=== PATIENT | female | born 1965 | race African-American/Black ===

== ENCOUNTER 2017-08-23 02:47 | Emergency (ER) | payer BC, SELFPAY ==
[2017-08-23] MEDS ORDERED: CYCLOBENZAPRINE 10 MG TAB ONE (03:42)
[2017-08-23] MEDS ORDERED: KETOROLAC 30 MG/ML INJ ONE (03:43)
--- NOTE | 2017-08-23 03:46 | ER ---
Nurse's Notes [facility] Name: Hannah Durand Age: 52 yrs Sex: Female : 1965 Arrival Date: 08/23/2017 Time: 02:48 Bed 7 Private MD: Iam Gamboa E Diagnosis: Otitis externa in other diseases classified elsewhere, left ear;Pain in right shoulder Presentation: 08/23 03:02 Presenting complaint: Patient states: "My left ear feels like popping every 5 min and ao it also painfull." patient also complains of right shoulder pain. Transition of care: patient was not received from another setting of care. Onset of symptoms was August 22, 2017 at 16:00. Risk Assessment: Do you want to hurt yourself or someone else? Patient reports no desire to harm self or others. Initial Sepsis Screen: Does the patient meet any 2 criteria? No. Patient's initial sepsis screen is negative. Does the patient have a suspected source of infection? No. Patient's initial sepsis screen is negative. Care prior to arrival: None. 03:02 Method Of Arrival: Ambulatory ao 03:02 Acuity: JOHN 4 ao Triage Assessment: 03:06 General: Appears in no apparent distress. uncomfortable, Behavior is calm, appropriate ao for age. Pain: Complains of pain in Left ear and right shoulder pain. EENT: Tympanic membrane reddened on left ear. Neuro: Level of Consciousness is awake, Oriented to person, place, time, situation, Appropriate for age Moves all extremities. Speech is normal, Facial symmetry appears normal. Cardiovascular: Capillary refill < 3 seconds Patient's skin is warm and dry. Respiratory: Airway is patent Respiratory effort is even, unlabored, Respiratory pattern is regular, symmetrical. GI: Abdomen is non-distended. : No signs and/or symptoms were reported regarding the genitourinary system. Derm: No signs and/or symptoms reported regarding the dermatologic system. Musculoskeletal: Amputation of Circulation, motion, and sensation intact. Range of motion:. 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 - Social history:: Smoking status: Patient/guardian denies using tobacco, Patient/guardian denies using alcohol, street drugs. - Ebola Screening: : Patient negative for fever greater than or equal to 101.5 degrees Fahrenheit, and additional compatible Ebola Virus Disease symptoms Patient denies exposure to infectious person Patient denies travel to an Ebola-affected area in the 21 days before illness onset. Screenin:06 Abuse screen: Denies threats or abuse. Denies injuries from another. Nutritional ao screening: No deficits noted. Tuberculosis screening: No symptoms or risk factors identified. Fall Risk None identified. Assessment: 03:09 General: See triage notes. ao 03:56 Reassessment: DC Instructions given to patient. Patient agree with the POC and to ao follow up with PCP. Provided with a work note. Patient has no qauestions. Vital Signs: 03:04 BP 145 / 93; Pulse 95; Resp 16; Temp 99.0(O); Pulse Ox 100% on R/A; Weight 72.57 kg ao (R); Height 6 ft. 0 in. (182.88 cm); Pain 8/10; 03:04 Body Mass Index 21.70 (72.57 kg, 182.88 cm) ao ED Course: 02:48 Patient arrived in ED. am2 02:48 Iam Gamboa MD is Private Physician. am2 03:02 Rojelio Grove, RN is Primary Nurse. ao 03:02 Gonzalo Salas PA is PHCP. cp 03:02 Gonzalo Alberto MD is Attending Physician. cp 03:03 Triage completed. ao 03:05 Arm band placed on right wrist. Patient placed in an exam room, on a stretcher, on ao pulse oximetry, Patient notified of wait time. 03:06 Patient has correct armband on for positive identification. Pulse ox on. NIBP on. ao 03:25 X-ray completed. Portable x-ray completed in exam room. Patient tolerated procedure kw well. 03:26 Shoulder Right 2 View In Process Unspecified. EDMS 03:44 Iam Gamboa MD is Referral Physician. cp 03:56 No provider procedures requiring assistance completed. Patient did not have IV access ao during this emergency room visit. Administered Medications: 03:45 Drug: TORadol 60 mg Route: IM; Site: right gluteus; ao 03:58 Follow up: Response: Medication administered at discharge. ao 03:45 Drug: Flexeril 10 mg Route: PO; ao 03:59 Follow up: Response: Medication administered at discharge. ao Outcome: 03:45 Discharge ordered by MD. cp 03:56 Discharged to home ambulatory. ao 03:56 Condition: stable 03:56 Discharge instructions given to patient, Instructed on discharge instructions, follow up and referral plans. Demonstrated understanding of instructions, follow-up care, medications, Prescriptions given X 3. 03:58 Patient left the ED. ao Signatures: Dispatcher [employer] EDMS Lisha Yoon Corey, PA PA cp Ortiz, Alex, RN RN Claudette Matson
--- NOTE | 2017-08-23 03:46 | EDPHYS ---
Physician Documentation [facility] Name: Hannah Durand Age: 52 yrs Sex: Female : 1965 Arrival Date: 08/23/2017 Time: 02:48 Bed 7 Private MD: Iam Gamboa E ED Physician Gonzalo Alberto HPI: 08/23 03:05 This 52 yrs old Black Female presents to ER via Ambulatory with complaints of Ear Pain. cp 03:05 The patient presents with pain, that is acute, tenderness. The complaints affect the cp left ear. Onset: The symptoms/episode began/occurred today. Associated signs and symptoms: Pertinent negatives: cough, fever, sinus trouble, sore throat, vertigo, vomiting. Patient also c/o right shoulder pain times 1 week. Pain worse when lying on shoulder and with movement. Patient denies injury, denies chest pain, denies numbness/tingling. 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 - Social history:: Smoking status: Patient/guardian denies using tobacco, Patient/guardian denies using alcohol, street drugs. - Ebola Screening: : Patient negative for fever greater than or equal to 101.5 degrees Fahrenheit, and additional compatible Ebola Virus Disease symptoms Patient denies exposure to infectious person Patient denies travel to an Ebola-affected area in the 21 days before illness onset. ROS: 03:10 Constitutional: Negative for body aches, chills, fever, poor PO intake. cp 03:10 Eyes: Negative for injury, pain, redness, and discharge. cp 03:10 ENT: Positive for ear pain, Negative for drainage from ear(s), rhinorrhea, sinus congestion, sore throat, difficulty swallowing, difficulty handling secretions. 03:10 Neck: Negative for pain with movement, pain at rest, stiffness, swollen nodes, tenderness, bony tenderness. 03:10 Cardiovascular: Negative for chest pain, edema, palpitations. 03:10 Respiratory: Negative for cough, shortness of breath, wheezing. 03:10 Abdomen/GI: Negative for abdominal pain, nausea, vomiting, and diarrhea, black/tarry stool, rectal bleeding. 03:10 Back: Negative for injury or acute deformity, radiated pain. 03:10 MS/extremity: Positive for pain, tenderness, of the right shoulder, Negative for injury or acute deformity, decreased range of motion, paresthesias. 03:10 Skin: Negative for cellulitis, diaphoresis, rash. 03:10 Neuro: Negative for altered mental status, dizziness, headache, numbness, tingling, weakness. 03:10 All other systems are negative. Exam: 03:12 Constitutional: The patient appears in no acute distress, alert, awake, cp non-diaphoretic, non-toxic, well developed. 03:12 Head/Face: Normocephalic, atraumatic. cp 03:12 Eyes: Periorbital structures: appear normal, Pupils: equal, round, and reactive to light and accomodation, Extraocular movements: intact throughout, Conjunctiva: normal, no exudate, no injection, Sclera: no appreciated abnormality, Lids and lashes: appear normal, bilaterally. 03:12 ENT: External ear(s): pain with movement, that is mild, of the left ear canal, swelling, that is minimal, of the left ear canal, Ear canal(s): erythema, is not appreciated, bilaterally, purulent discharge, is not appreciated, bilaterally, TM's: dullness, bilaterally, Nose: is normal, Mouth: is normal, no lip abnormalities, no mucosal abnormalities, Posterior pharynx: is normal, airway is patent, no erythema, no exudate, Voice: is normal. 03:12 Neck: C-spine: vertebral tenderness, is not appreciated, crepitus, is not appreciated, ROM/movement: is normal, is supple, without pain, no range of motions limitations, no nuchal rigidity, Lymph nodes: no appreciated lymphadenopathy. 03:12 Chest/axilla: Inspection: normal, Palpation: is normal, no crepitus, no tenderness. 03:12 Cardiovascular: Rate: normal, Rhythm: regular, Heart sounds: murmur, not appreciated, rub, not appreciated, gallop, not appreciated, Edema: is not appreciated, JVD: is not appreciated. 03:12 Respiratory: the patient does not display signs of respiratory distress, Respirations: normal, no use of accessory muscles, no retractions, no splinting, no tachypnea, labored breathing, is not present, Breath sounds: are clear throughout, no decreased breath sounds, no stridor, no wheezing. 03:12 Abdomen/GI: Exam negative for discomfort, distension, guarding, Inspection: abdomen appears normal. 03:12 Back: pain, is absent, ROM is normal. 03:12 Musculoskeletal/extremity: Perfusion: the extremity is normally perfused throughout, Sensation intact. Joints: All joints are normal except the right shoulder displays painful range of motion, tenderness. 03:12 Skin: cellulitis, is not appreciated, no rash present. 03:12 Neuro: Orientation: to person, place \T\ time. Mentation: lucid, able to follow commands. Vital Signs: 03:04 BP 145 / 93; Pulse 95; Resp 16; Temp 99.0(O); Pulse Ox 100% on R/A; Weight 72.57 kg ao (R); Height 6 ft. 0 in. (182.88 cm); Pain 8/10; 03:04 Body Mass Index 21.70 (72.57 kg, 182.88 cm) ao MDM: 03:02 Patient medically screened. cp 03:25 Differential diagnosis: otitis media, otitis externa, ruptured TM, foreign body, acute cp otalgia, cerumen impaction, tendonitis, shoulder strain. 03:45 Data reviewed: vital signs, nurses notes, radiologic studies, plain films, and as a cp result, I will discharge patient. 03:45 Test interpretation: by ED physician or midlevel provider: plain radiologic studies. cp Counseling: I had a detailed discussion with the patient and/or guardian regarding: the historical points, exam findings, and any diagnostic results supporting the discharge/admit diagnosis, radiology results, the need for outpatient follow up, a family practitioner, to return to the emergency department if symptoms worsen or persist or if there are any questions or concerns that arise at home. Response to treatment: the patient's symptoms have markedly improved after treatment, and as a result, I will discharge patient. 08/23 03:49 Order name: Urine Dipstick--Ancillary (enter results) [facility] 08/23 03:49 Order name: Urine --Ancillary (enter results) [facility] 08/23 03:26 Order name: Shoulder Right 2 View [facility] 08/23 03:17 Order name: Urine Test (obtain specimen); Complete Time: 03:45 cp Administered Medications: 03:45 Drug: TORadol 60 mg Route: IM; Site: right gluteus; ao 03:58 Follow up: Response: Medication administered at discharge. ao 03:45 Drug: Flexeril 10 mg Route: PO; ao 03:59 Follow up: Response: Medication administered at discharge. ao Disposition: 08/23/17 03:45 Discharged to Home. Impression: Otitis externa in other diseases classified elsewhere, left ear, Pain in right shoulder. - Condition is Stable. - Discharge Instructions: Otitis Externa, Shoulder Pain. - Prescriptions for Cortisporin- TC 3.3-3-10-0.5 mg/mL Otic Drops, Suspension - instill 4 drops by OTIC route every 6 hours for 7 days instill drops in left ear; 1 bottle. Cyclobenzaprine 10 mg Oral Tablet - take 1 tablet by ORAL route every 8 hours As needed no driving while taking medication; 20 tablet. Diclofenac Sodium 75 mg Oral Tablet, Delayed Release (E.C.) - take 1 tablet by ORAL route 2 times per day; 20 tablet. - Medication Reconciliation Form, Thank You Letter, Antibiotic Education, Prescription Opioid Use, Work release form form. - Follow up: Iam Gamboa MD; When: 2 - 3 days; Reason: Recheck today's complaints. - Problem is new. - Symptoms have improved. Addendum: 08/24/2017 06:01 Co-signature as Attending Physician, Gonzalo Alberto MD I agree with the assessment and c corbett plan of care. Signatures: Dispatcher [employer] [facility] Gonzalo Alberto MD MD cha Page, Corey, PA PA cp Ortiz, Alex RN RN ao Corrections: (The following items were deleted from the chart) 08/23 03:26 03:17 Shoulder Left 2 View+RAD.RAD.BRZ ordered. [facility] 03:58 03:45 08/23/2017 03:45 Discharged to Home. Impression: Otitis externa in other diseases ao classified elsewhere, left ear; Pain in right shoulder. Condition is Stable. Forms are Medication Reconciliation Form, Thank You Letter, Antibiotic Education, Prescription Opioid Use. Follow up: Iam Gamboa; When: 2 - 3 days; Reason: Recheck today's complaints. Problem is new. Symptoms have improved. cp
[2017-08-23 04:09] VITALS: BP 145/93; TEMP 99; O2SAT 100
[2017-08-23] MEDS ORDERED: IBUPROFEN 200 MG TAB PO ONE (04:41)
[2017-08-23] MEDS ORDERED: HYDROCODONE/APAP 7.5/325 MG TAB ONE (04:41)
[2017-08-23] MEDS ORDERED: IBUPROFEN 400 MG TAB ONE (04:41)
[2017-08-23] MEDS ORDERED: DIAZEPAM 5 MG TABLET ONE (04:41)
[2017-08-23 06:11] LABS: Urine Blood NEGATIVE (NEG); Urine Glucose NEGATIVE (NEG); Urine Protein NEGATIVE (NEG); Urine Specific Gravity 1.015 (1.005-1.030); Urine pH 5.5 (5.0-7.0)
--- NOTE | 2017-08-23 10:06 | RAD REPORT ---
EXAM DESCRIPTION: RAD - Shoulder Right 2 View - 08/23/2017 3:28 am CLINICAL HISTORY: PAIN COMPARISON: Chest Single View dated 11/20/2016 FINDINGS: No fracture or dislocation is seen. No bone or joint abnormality detected.
== END 2017-08-23 03:58 | disposition home or self-care (01) ==
LOC: ER 02:47
DX: H60.8X2 Other otitis externa, left ear (principal); M25.511 Pain in right shoulder; I10 Essential (primary) hypertension
CPT/HCPCS: 81003; 81025; 96372; 99284

== ENCOUNTER 2017-09-11 13:21 | Emergency (ER) | payer BC, SELFPAY ==
[2017-09-11] MEDS ORDERED: NA CHLORIDE 0.9% 1,000 ML ONE (14:09)
[2017-09-11] MEDS ORDERED: MORPHINE 4 MG/ML SYR ONE (14:09)
[2017-09-11] MEDS ORDERED: ONDANSETRON 4 MG/2 ML VIAL ONE (14:09)
[2017-09-11 14:12] LABS: Absolute Lymphocytes (CBC) 1.3 K/uL (0.7-4.9); Absolute Monocytes 0.3 K/uL (0.1-1.3); Absolute Neutrophil 1.4 K/uL (1.8-8.0); Basophils % 0.7 % (0-1.3); Eosinophils % 0.5 % (0-4.4); Hematocrit 40.6 % (36.0-45.0); Lymphocytes % 41.7 % (15.3-44.8); MCV 92.5 fL (80-100); MPV 7.8 fL (7.6-11.3); Monocytes % 9.4 % (3.3-12.3); RBC Red Blood Cell Count 4.39 M/uL (3.86-4.86)
[2017-09-11 14:30] LABS: Albumin 3.9 g/dL (3.4-5.0); Bilirubin Direct 0.2 mg/dL (0-0.2); Bilirubin Total 0.9 mg/dL (0.2-1.0); Potassium 3.9 mmol/L (3.5-5.1); Protein, Total 8.8 g/dL (6.4-8.2)
--- NOTE | 2017-09-11 16:15 | RAD REPORT ---
EXAM DESCRIPTION: CT - Abdomen Pelvis W Contrast - 09/11/2017 4:04 pm CLINICAL HISTORY: Abdominal pain. Diarrhea since Sunday COMPARISON: 2015 TECHNIQUE: Computed axial tomography of the abdomen and pelvis was obtained. 100 cc Isovue-300 is ad ministered intravenously. Oral contrast was given. All CT scans are performed using dose optimization technique as appropriate and may include automated exposure control or mA/KV adjustment according to patient size. FINDINGS: The liver, spleen,, adrenals and kidneys appear unremarkable. Fatty infiltration of a portion of the pancreas is unchanged. The appendix is normal caliber. There is no evidence of diverticulitis . Medial wall of the transvers e and right colon appears mildly thickened Postsurgical changes of a ventral hernia repair are seen. IMPRESSION: Mild colitis
[2017-09-11 16:31] LABS: Urine Blood NEGATIVE (NEG); Urine Glucose NEGATIVE (NEG); Urine Protein NEGATIVE (NEG); Urine Specific Gravity 1.015 (1.005-1.030)
[2017-09-11 16:34] LABS: Urine Bacteria <20 /HPF (<20); Urine Culture Reflex Order NOT NEEDED; Urine RBC <5 /HPF (NONE SEEN)
--- NOTE | 2017-09-11 16:38 | EDPHYS ---
Physician Documentation [facility] Name: Hannah Durand Age: 52 yrs Sex: Female : 1965 Arrival Date: 09/11/2017 Time: 13:25 Bed 28 Private MD: Iam Gamboa E ED Physician Guy Oscar HPI: 09/11 13:46 This 52 yrs old Black Female presents to ER via Ambulatory with complaints of Abdominal jmm Pain, Headache. 13:46 The patient presents with abdominal pain that is diffuse. Onset: The symptoms/episode jmm began/occurred gradually, 4 day(s) ago. Associated signs and symptoms: Pertinent positives: diarrhea. Associated signs and symptoms: Pertinent negatives: fever, vomiting. The symptoms are described as achy. This is a 52 year old female with a history of hypertension that presents to the ED with diarrhea and generalized abdominal pain. Denies vomiting but admits to nausea. Patient denies recent abx use, denies recent travel, denies sick contact. . 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 - Social history:: Smoking status: Patient uses tobacco products, Patient/guardian denies using alcohol. - Ebola Screening: : Patient negative for fever greater than or equal to 101.5 degrees Fahrenheit, and additional compatible Ebola Virus Disease symptoms Patient denies exposure to infectious person Patient denies travel to an Ebola-affected area in the 21 days before illness onset. ROS: 13:46 Constitutional: Negative for fever, chills, and weight loss. jmm 13:46 Cardiovascular: Negative for chest pain. 13:46 Abdomen/GI: Positive for abdominal pain, nausea, diarrhea. 13:46 Back: Negative for pain at rest. 13:46 Neuro: Positive for headache, Negative for weakness. 13:46 All other systems are negative. Exam: 13:46 Head/Face: atraumatic. Chest/axilla: Normal chest wall appearance and motion. jmm Cardiovascular: Regular rate and rhythm. No edema appreciated Respiratory: Normal respirations, no respiratory distress appreciated 13:46 Constitutional: The patient appears in no acute distress, alert, awake. 13:46 Abdomen/GI: Inspection: obese Bowel sounds: normal, Palpation: soft, mild abdominal tenderness, in all quadrants. 13:46 Back: ROM is normal. 13:46 Musculoskeletal/extremity: ROM: intact in all extremities. 13:46 Skin: Appearance: Color: normal in color. 13:46 Neuro: Orientation: is normal, Mentation: is normal, Memory: is normal, Gait: is steady. 13:46 Psych: Behavior/mood is pleasant, cooperative. Vital Signs: 13:31 BP 159 / 104; Pulse 89; Resp 18; Temp 98.1; Pulse Ox 100% on R/A; Weight 72.57 kg; hj Height 6 ft. 0 in. (182.88 cm); Pain 10/10; 14:30 BP 143 / 98; Pulse 90; Resp 17; Pulse Ox 99% on R/A; kr2 15:30 BP 152 / 100; Pulse 88; Resp 20; Pulse Ox 99% on R/A; kr2 16:30 BP 144 / 88; Pulse 92; Resp 17; Pulse Ox 99% on R/A; kr2 13:31 Body Mass Index 21.70 (72.57 kg, 182.88 cm) hj MDM: 13:36 Patient medically screened. [facility] 16:34 Data reviewed: vital signs, nurses notes, lab test result(s), radiologic studies, CT [facility] scan. Counseling: I had a detailed discussion with the patient and/or guardian regarding: the historical points, exam findings, and any diagnostic results supporting the discharge/admit diagnosis, lab results, radiology results, the need for outpatient follow up, to return to the emergency department if symptoms worsen or persist or if there are any questions or concerns that arise at home. ED course: Patient's pain is relieved in the ED. Patient is able to tolerate PO by mouth. Patient will be prescribed oral antibiotics and is advised to follow up with GI for further evaluation. Patient advised to return to the ED if she develops worsening pain, fever, unable to tolerate fluids by mouth or if she has any other concerning symptoms. The patient and family understood and agree with the plan of care. . 09/11 13:44 Order name: Amylase, Serum; Complete Time: 14:37 [facility] 09/11 13:44 Order name: Basic Metabolic Panel; Complete Time: 14:37 [facility] 09/11 13:44 Order name: CBC with Diff; Complete Time: 14:27 [facility] 09/11 13:44 Order name: Creatinine for Radiology; Complete Time: 14:37 [facility] 09/11 13:44 Order name: Hepatic Function; Complete Time: 14:37 [facility] 09/11 13:44 Order name: Lipase; Complete Time: 14:37 [facility] 09/11 13:44 Order name: Urine Microscopic Only; Complete Time: 16:40 [facility] 09/11 13:44 Order name: CT Abd/Pelvis - W/Contrast; Complete Time: 16:19 [facility] 09/11 16:27 Order name: Urine Dipstick--Ancillary (enter results); Complete Time: 16:40 ag 09/11 16:27 Order name: Urine --Ancillary (enter results); Complete Time: 16:40 ag 09/11 13:44 Order name: IV Saline Lock; Complete Time: 14:34 [facility] 09/11 13:44 Order name: Labs collected and sent; Complete Time: 14:34 [facility] 09/11 13:44 Order name: Urine Dipstick-Ancillary (obtain specimen); Complete Time: 16:31 jm Administered Medications: 14:05 Drug: morphine 4 mg Route: IVP; Site: left antecubital; kr2 14:30 Follow up: Response: No adverse reaction; Pain is decreased kr2 14:10 Drug: NS 0.9% 1000 ml Route: IV; Rate: 1 bolus; Site: left antecubital; kr2 15:30 Follow up: Response: No adverse reaction; IV Status: Completed infusion kr2 14:10 Drug: Zofran 4 mg Route: IVP; Site: left antecubital; kr2 14:30 Follow up: Response: No adverse reaction kr2 Disposition: 20:54 Co-signature as Attending Physician, Guy Oscar MD. Disposition: 09/11/17 16:37 Discharged to Home. Impression: COLITIS, Diarrhea. - Condition is Stable. - Discharge Instructions: Diarrhea. - Prescriptions for Bentyl 20 mg Oral Tablet - take 2 tablet by ORAL route every 6 hours As needed; 40 tablet. Cipro 500 mg Oral Tablet - take 1 tablet by ORAL route every 12 hours for 10 days; 20 tablet. Flagyl 500 mg Oral Tablet - take 1 tablet by ORAL route every 6 hours for 10 days; 40 tablet. Tylenol- Codeine #3 300-30 mg Oral Tablet - take 1 tablet by ORAL route every 6 hours As needed; 12 tablet. Zofran 4 mg Oral Tablet - take 1 tablet by ORAL route every 12 hours As needed; 20 tablet. - Medication Reconciliation Form, Thank You Letter, Antibiotic Education, Prescription Opioid Use form. - Follow up: Serge Johnson MD; When: 2 - 3 days; Reason: Continuance of care. Signatures: Dispatcher [employer] EDMS Gonzalo Alberto MD MD cha Mickail, Joel, PA PA jmm Joaquin, Henry, RN RN Guy Oscar MD MD gs Reaves, Karey, RN RN kr2 Corrections: (The following items were deleted from the chart) 13:31 13:29 PSHx: None; [facility] 16:49 16:37 09/11/2017 16:37 Discharged to Home. Impression: COLITIS; Diarrhea. Condition is kr2 Stable. Forms are Medication Reconciliation Form, Thank You Letter, Antibiotic Education, Prescription Opioid Use. Follow up: Serge Johnson; When: 2 - 3 days; Reason: Continuance of care. nilesh
--- NOTE | 2017-09-11 16:38 | ER ---
Nurse's Notes [facility] Name: Hannah Durand Age: 52 yrs Sex: Female : 1965 Arrival Date: 09/11/2017 Time: 13:25 Bed 28 Private MD: Iam Gamboa E Diagnosis: COLITIS;Diarrhea Presentation: 09/11 13:27 Presenting complaint: Patient states: my stomach hurts since Sunday and woke today hj with headache, reports diarrhea since Sunday; reports nausea; denies fever and chills;. Transition of care: patient was not received from another setting of care. Onset of symptoms was September 11, 2017. Risk Assessment: Do you want to hurt yourself or someone else? Patient reports no desire to harm self or others. Initial Sepsis Screen: Does the patient meet any 2 criteria? No. Patient's initial sepsis screen is negative. Does the patient have a suspected source of infection? No. Patient's initial sepsis screen is negative. Care prior to arrival: None. 13:27 Method Of Arrival: Ambulatory 13:27 Acuity: JOHN 3 Triage Assessment: 13:29 General: Appears in no apparent distress. uncomfortable, Behavior is calm, cooperative, hj appropriate for age. Pain: Complains of pain in abdomen. GI: Reports lower abdominal pain, upper abdominal pain, diarrhea, nausea. 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 - Social history:: Smoking status: Patient uses tobacco products, Patient/guardian denies using alcohol. - Ebola Screening: : Patient negative for fever greater than or equal to 101.5 degrees Fahrenheit, and additional compatible Ebola Virus Disease symptoms Patient denies exposure to infectious person Patient denies travel to an Ebola-affected area in the 21 days before illness onset. Screenin:29 Abuse screen: Denies threats or abuse. Denies injuries from another. Nutritional hj screening: No deficits noted. Tuberculosis screening: No symptoms or risk factors identified. Fall Risk None identified. Assessment: 13:30 GI: Bowel sounds present X 4 quads. Abd is soft Abdomen is tender to palpation. hj 13:45 General: Appears in no apparent distress. comfortable, well groomed, well developed, kr2 well nourished, Behavior is calm, cooperative, appropriate for age. Pain: Complains of pain in abdomen Pain does not radiate. Pain currently is 9 out of 10 on a pain scale. Quality of pain is described as crampy, shooting, Is continuous, Alleviated by rest, Aggravated by increased activity. Neuro: Level of Consciousness is awake, alert, obeys commands, Oriented to person, place, time, situation, Appropriate for age. Cardiovascular: Capillary refill < 3 seconds in bilateral fingers Patient's skin is warm and dry. Respiratory: Airway is patent Respiratory effort is even, unlabored, Respiratory pattern is regular, symmetrical. GI: Bowel sounds present X 4 quads. Abd is soft X 4 quads Abdomen is tender to palpation X 4 quads. : Denies burning with urination. EENT: Oral mucosa is moist. Derm: Skin is intact, is healthy with good turgor, Skin is pink, warm \T\ dry. Musculoskeletal: Circulation, motion, and sensation intact. 14:30 Reassessment: Oral contrast completed, CT department notified. kr2 15:30 Reassessment: Patient appears in no apparent distress at this time. Patient and/or kr2 family updated on plan of care and expected duration. Pain level reassessed. Patient is alert, oriented x 3, equal unlabored respirations, skin warm/dry/pink. Patient states feeling better. 16:30 Reassessment: No changes from previously documented assessment. kr2 Vital Signs: 13:31 BP 159 / 104; Pulse 89; Resp 18; Temp 98.1; Pulse Ox 100% on R/A; Weight 72.57 kg; Height 6 ft. 0 in. (182.88 cm); Pain 10/10; 14:30 BP 143 / 98; Pulse 90; Resp 17; Pulse Ox 99% on R/A; kr2 15:30 BP 152 / 100; Pulse 88; Resp 20; Pulse Ox 99% on R/A; kr2 16:30 BP 144 / 88; Pulse 92; Resp 17; Pulse Ox 99% on R/A; kr2 13:31 Body Mass Index 21.70 (72.57 kg, 182.88 cm) ED Course: 13:25 Patient arrived in ED. sb2 13:25 Iam Gamboa MD is Private Physician. sb2 13:28 Triage completed. hj 13:30 Arm band placed on left wrist. hj 13:30 Patient has correct armband on for positive identification. Placed in gown. Bed in low hj position. Call light in reach. Side rails up X 1. 13:33 Antonio Colon PA is PHCP. [facility] 13:34 Guy Oscar MD is Attending Physician. [facility] 13:34 Angela Barton, CYNTHIA is Primary Nurse. kr2 14:00 Inserted saline lock: 20 gauge in left antecubital area, using aseptic technique. Blood kr2 collected. 15:[address] via wheelchair. nj 16:04 CT completed. Patient tolerated procedure well. Patient moved back from CT. nj 16:04 CT Abd/Pelvis - W/Contrast In Process Unspecified. EDMS 16:36 Serge Johnson MD is Referral Physician. [facility] 16:48 No provider procedures requiring assistance completed. IV discontinued. kr2 Administered Medications: 14:05 Drug: morphine 4 mg Route: IVP; Site: left antecubital; kr2 14:30 Follow up: Response: No adverse reaction; Pain is decreased kr2 14:10 Drug: NS 0.9% 1000 ml Route: IV; Rate: 1 bolus; Site: left antecubital; kr2 15:30 Follow up: Response: No adverse reaction; IV Status: Completed infusion kr2 14:10 Drug: Zofran 4 mg Route: IVP; Site: left antecubital; kr2 14:30 Follow up: Response: No adverse reaction kr2 Outcome: 16:37 Discharge ordered by . [facility] 16:48 Discharged to home ambulatory, with family. kr2 16:48 Condition: good 16:48 Discharge instructions given to patient, family, Instructed on discharge instructions, follow up and referral plans. medication usage, Demonstrated understanding of instructions, follow-up care, medications, Prescriptions given X 5 16:49 Patient left the ED. kr2 Signatures: Dispatcher [employer] EDMS Antonio Colon PA PA Jose Wesley RN RN hj Jordan, Nathan nj Reaves, Karey, CYNTHIA RN kr2 Debbi Flannery sb2 Corrections: (The following items were deleted from the chart) 13:31 13:29 PSHx: None; hj hj
[2017-09-11 16:53] VITALS: TEMP 98.1
[2017-09-11 16:54] VITALS: O2SAT 99
[2017-09-11 16:56] VITALS: BP 144/88
== END 2017-09-11 16:49 | disposition home or self-care (01) ==
LOC: ER 13:21
DX: K52.9 Noninfective gastroenteritis and colitis, unspecified (principal); I10 Essential (primary) hypertension; Z72.0 Tobacco use
CPT/HCPCS: 36415; 74177; 80048; 80076; 81003; 81015; 81025; 82150; 83690; 85025; 96361; 96374; 96375; 99284; J2405; J7030; Q9967

== ENCOUNTER 2017-10-12 04:42 | Emergency (ER) | payer SELFPAY ==
[2017-10-12] MEDS ORDERED: IPRATROPIUM BROM 0.5MG/2.5ML ONE (05:01)
[2017-10-12] MEDS ORDERED: ALBUTEROL 2.5 MG/3 ML NEB SOL ONE (05:01)
[2017-10-12] MEDS ORDERED: NA CHLORIDE 0.9% 500 ML ONE (05:12)
[2017-10-12 05:21] LABS: Urine Blood NEGATIVE (NEG); Urine Glucose NEGATIVE (NEG); Urine Protein NEGATIVE (NEG); Urine pH 6.5 (5.0-7.0)
[2017-10-12 05:22] LABS: Arterial Blood Carboxyhemoglob 1.7 % (0-1.5); Blood Gas Oxyhemoglobin 96.3 % (94-97); Blood O2 Saturation 99.4 % (92-98.5)
[2017-10-12 05:32] LABS: Absolute Lymphocytes (CBC) 1.6 K/uL (0.7-4.9); Absolute Monocytes 0.3 K/uL (0.1-1.3); Absolute Neutrophil 2.5 K/uL (1.8-8.0); Basophils % 0.3 % (0-1.3); Eosinophils % 1.1 % (0-4.4); Hematocrit 37.4 % (36.0-45.0); Lymphocytes % 35.5 % (15.3-44.8); MCV 93.6 fL (80-100); Monocytes % 7.7 % (3.3-12.3); RBC Red Blood Cell Count 3.99 M/uL (3.86-4.86)
[2017-10-12 05:55] LABS: ALT/SGPT 28 U/L (12-78); AST/SGOT 29 U/L (15-37); Albumin 3.8 g/dL (3.4-5.0); Alkaline Phosphatase 66 U/L (45-117); BUN Blood Urea Nitrogen 15 mg/dL (7-18); Bicarbonate 29 mmol/L (21-32); Bilirubin Direct 0.2 mg/dL (0-0.2); Bilirubin Total 0.6 mg/dL (0.2-1.0); CKMB Creatine Kinase MB < 1.0 ng/mL (0.3-3.6); Creatine Phosphokinase 71 U/L (26-192); Glucose Level 118 mg/dL (74-106); Magnesium 2.3 mg/dL (1.8-2.4); NT PRO-BNP 111 pg/mL (<125); Potassium 3.3 mmol/L (3.5-5.1); Protein, Total 8.8 g/dL (6.4-8.2); Sodium Level 143 mmol/L (136-145)
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
[2017-10-12] MEDS ORDERED: POTASSIUM 25 MEQ EFFERV TAB ONE (06:16)
[2017-10-12 06:59] VITALS: BP 136/80; TEMP 98.5; O2SAT 97
--- NOTE | 2017-10-12 07:46 | RAD REPORT ---
EXAM DESCRIPTION: Jose Juan Single View10/12/2017 5:19 am CLINICAL HISTORY: Cough COMPARISON: November 2016 FINDINGS: The left base is mildly hazy. The remainder of the lungs appear clear of acute infiltrate . . The heart is mildly enlarged. IMPRESSION: The left base is mildly hazy. This may be secondary to overlying soft tissue or a mild i nfiltrate. If clinically indicated further evaluation with PA and lateral chest series could be obtai fl[place]
--- NOTE | 2017-10-12 11:40 | EKG ---
Test Date: 2017-10-12 Test Time: 05:01:47 Operator Supply: TIMMY MEASUREMENT RESULTS: Intervals: Rate: 82 MS: 140 QRSD: 86 QT: 362 QTc: 422 [place]: P: 55 MS: 140 QRS: 14 T: 37 INTERPRETIVE STATEMENTS: Normal sinus rhythm Nonspecific T wave abnormality Abnormal ECG Compared to ECG 11/20/2016 14:51:30 No significant changes Electronically Signed On 10-12-17 11:40:13 CDT by Joe Cruz
== END 2017-10-12 06:35 | disposition home or self-care (01) ==
LOC: ER 04:42
DX: J70.5 Respiratory conditions due to smoke inhalation (principal); I10 Essential (primary) hypertension; E87.6 Hypokalemia
CPT/HCPCS: 36415; 71045; 80048; 80076; 81003; 82550; 82553; 82805; 83735; 83880; 84484; 85025; 93005; 94640; 96360; 99285

== ENCOUNTER 2018-02-09 23:34 | Emergency (ER) | payer SELFPAY ==
[2018-02-10] MEDS ORDERED: HYDROCODONE/APAP 10/325 TAB ONE (00:39)
[2018-02-10] MEDS ORDERED: DIAZEPAM 5 MG TABLET ONE (00:40)
--- NOTE | 2018-02-10 02:03 | EDPHYS ---
Physician Documentation [facility] Name: Hannah Durand Age: 52 yrs Sex: Female : 1965 Arrival Date: 02/09/2018 Time: 23:36 Bed 18 Private MD: ED Physician Jt Yeboah HPI: 02/10 00:10 This 52 yrs old Black Female presents to ER via Ambulatory with complaints of Back Pain.jmm 00:10 The patient presents with pain that is acute. The symptoms are located in the low back, jmm coccyx area. Onset: The symptoms/episode began/occurred acutely, just prior to arrival. The pain does not radiate. Associated signs and symptoms: Pertinent negatives: fever, incontinence, numbness, urinary retention, weakness. This is a 52 year old female with a history of HTN that presents to the ED with lower back pain after slipping yesterday, hitting the floor. Pain is localized to the left buttock and tailbone. . 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 - Social history:: Smoking status: Patient/guardian denies using tobacco, Patient/guardian denies using alcohol. - Ebola Screening: : Patient negative for fever greater than or equal to 101.5 degrees Fahrenheit, and additional compatible Ebola Virus Disease symptoms Patient denies exposure to infectious person Patient denies travel to an Ebola-affected area in the 21 days before illness onset. ROS: 02/10 00:10 Constitutional: Negative for fever, chills, and weight loss. jmm Back: Positive for pain at rest, pain with movement. All other systems are negative. Exam: 00:10 Head/Face: atraumatic. Eyes: EOMI, no conjunctival erythema appreciated ENT: Moist jmm Mucus Membranes Neck: Trachea midline, Supple Chest/axilla: Normal chest wall appearance and motion. Cardiovascular: Regular rate and rhythm. No edema appreciated Respiratory: Normal respirations, no respiratory distress appreciated Abdomen/GI: Non distended, soft 00:10 Constitutional: The patient appears in no acute distress, alert, awake. 00:10 Back: ROM is painful, pain localized to the left paraspinal lumbar region, coccyx, and left buttock. 00:10 Musculoskeletal/extremity: ROM: intact in all extremities. 00:10 Skin: Appearance: Color: normal in color. 00:10 Neuro: Motor: is normal. 00:10 Psych: Behavior/mood is pleasant, cooperative. Vital Signs: 02/09 23:50 BP 168 / 103; Pulse 76; Resp 18; Temp 98.5(O); Pulse Ox 99% on R/A; Weight 85.73 kg fc (R); Height 6 ft. 0 in. (182.88 cm) (R); Pain 12/19; 02/10 02:16 BP 137 / 80; Pulse 78; Resp 18; Pulse Ox 98% on R/A; lp1 02/09 23:50 Body Mass Index 25.63 (85.73 kg, 182.88 cm) fc MDM: 00:10 Patient medically screened. [facility] 02:02 Data reviewed: vital signs, nurses notes. Counseling: I had a detailed discussion with nilesh the patient and/or guardian regarding: the historical points, exam findings, and any diagnostic results supporting the discharge/admit diagnosis, radiology results, the need for outpatient follow up, to return to the emergency department if symptoms worsen or persist or if there are any questions or concerns that arise at home. 02/10 00:10 Order name: Sacrum And Coccyx XRAY [facility] 02/10 00:10 Order name: Lumbar Spine (3 Views) XRAY [facility] Administered Medications: 00:34 Drug: [place] 10 mg-325 mg 1 tabs Route: PO; lp1 01:40 Follow up: Response: Pain is unchanged, physician notified lp1 00:34 Drug: Valium 5 mg Route: PO; lp1 01:40 Follow up: Response: Pain is unchanged, physician notified lp1 02:16 Drug: Ketorolac 30 mg Route: IM; Site: left deltoid; lp1 02:16 Follow up: Response: Medication administered at discharge. lp1 Disposition: 05:33 Co-signature as Attending Physician, Jt Yeboah MD. rn Disposition: 02/10/18 02:03 Discharged to Home. Impression: Low back pain. - Condition is Stable. - Discharge Instructions: Tailbone Injury. - Prescriptions for Ultracet 37.5- 325 mg Oral Tablet - take 1 tablet by ORAL route every 6 hours - for up to 5 days; do not exceed 8 tablets per day.; 12 tablet. - Medication Reconciliation Form, Thank You Letter, Antibiotic Education, Prescription Opioid Use form. - Follow up: Private Physician; When: 2 - 3 days; Reason: Recheck today's complaints, Continuance of care, Re-evaluation by your physician. Signatures: Dispatcher [employer] EDMS Antonio Colon PA PA jmm Chretien, Felicia, RN RN fc Jt Yeboah MD MD rn Carey Velasquez RN RN lp1 Corrections: (The following items were deleted from the chart) 02:17 02:03 02/10/2018 02:03 Discharged to Home. Impression: Low back pain. Condition is lp1 Stable. Forms are Medication Reconciliation Form, Thank You Letter, Antibiotic Education, Prescription Opioid Use. Follow up: Private Physician; When: 2 - 3 days; Reason: Recheck today's complaints, Continuance of care, Re-evaluation by your physician. nilesh
--- NOTE | 2018-02-10 02:03 | ER ---
Nurse's Notes [facility] Name: Hannah Durand Age: 52 yrs Sex: Female : 1965 Arrival Date: 02/09/2018 Time: 23:36 Bed 18 Private MD: Diagnosis: Low back pain Presentation: 02/09 23:47 Presenting complaint: Patient states: that she slipped on some grease at work and fell fc straight on her back. Now having lower back pain. Denies any LOC. Transition of care: patient was not received from another setting of care. Onset of symptoms was February 08, 2018. Risk Assessment: Do you want to hurt yourself or someone else? Patient reports no desire to harm self or others. Initial Sepsis Screen: Does the patient meet any 2 criteria? No. Patient's initial sepsis screen is negative. Does the patient have a suspected source of infection? No. Patient's initial sepsis screen is negative. Care prior to arrival: Medication(s) given: Motrin, 800 mg, last at 1700. 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 - Social history:: Smoking status: Patient/guardian denies using tobacco, Patient/guardian denies using alcohol. - Ebola Screening: : Patient negative for fever greater than or equal to 101.5 degrees Fahrenheit, and additional compatible Ebola Virus Disease symptoms Patient denies exposure to infectious person Patient denies travel to an Ebola-affected area in the 21 days before illness onset. Screenin/02 01:52 Abuse screen: Denies threats or abuse. Denies injuries from another. Nutritional lp1 screening: No deficits noted. Tuberculosis screening: Fall Risk None identified. Assessment: 00:15 General: Appears uncomfortable, Behavior is appropriate for age. Pain: Complains of lp1 pain in lumbar area and sacrum Pain currently is 8 out of 10 on a pain scale. Neuro: Level of Consciousness is awake, alert, obeys commands. Cardiovascular: Patient's skin is warm and dry. Respiratory: No deficits noted. GI: No deficits noted. : No deficits noted. EENT: No deficits noted. Derm: No deficits noted. Musculoskeletal: Circulation, motion, and sensation intact. 01:40 Reassessment: Patient states no pain relief, Provider notified. lp1 Vital Signs: 02/09 23:50 BP 168 / 103; Pulse 76; Resp 18; Temp 98.5(O); Pulse Ox 99% on R/A; Weight 85.73 kg fc (R); Height 6 ft. 0 in. (182.88 cm) (R); Pain 10/10; 12 02:16 BP 137 / 80; Pulse 78; Resp 18; Pulse Ox 98% on R/A; lp1 02/09 23:50 Body Mass Index 25.63 (85.73 kg, 182.88 cm) ED Course: 02/09 23:36 Patient arrived in ED. es 23:49 Triage completed. fc 23:49 Arm band placed on Patient placed in an exam room, on a stretcher. 23:54 Carey Velasquez, RN is Primary Nurse. lp1 23:56 Antonio Colon PA is PHCP. [facility] 23:56 Jt Yeboah MD is Attending Physician. [facility] 02/10 01:09 Sacrum And Coccyx XRAY In Process Unspecified. EDMS 01:09 Lumbar Spine (3 Views) XRAY In Process Unspecified. EDMS 01:29 Patient moved back from radiology. sg4 01:29 X-ray completed. Patient tolerated procedure well. sg4 01:52 Patient has correct armband on for positive identification. lp1 02:16 No provider procedures requiring assistance completed. Patient did not have IV access lp1 during this emergency room visit. Administered Medications: 00:34 Drug: [place] 10 mg-325 mg 1 tabs Route: PO; lp1 01:40 Follow up: Response: Pain is unchanged, physician notified lp1 00:34 Drug: Valium 5 mg Route: PO; lp1 01:40 Follow up: Response: Pain is unchanged, physician notified lp1 02:16 Drug: Ketorolac 30 mg Route: IM; Site: left deltoid; lp1 02:16 Follow up: Response: Medication administered at discharge. lp1 Outcome: 02:03 Discharge ordered by . nilesh 02:17 Discharged to home ambulatory, with family. lp1 02:17 Condition: good 02:17 Discharge instructions given to patient, Instructed on discharge instructions, follow up and referral plans. medication usage, Demonstrated understanding of instructions, follow-up care, medications, Prescriptions given X 1. 02:17 Patient left the ED. lp1 Signatures: Dispatcher [employer] EDMS Antonio Colon PA PA jmm Salyer, Edna es Chretien, Felicia RN RN Carey Velasquez RN RN lp1 Melissa Fernandes sg4
[2018-02-10] MEDS ORDERED: KETOROLAC 30 MG/ML INJ ONE (02:11)
[2018-02-10 03:11] VITALS: TEMP 98.5
[2018-02-10 03:13] VITALS: BP 137/80; O2SAT 98
--- NOTE | 2018-02-10 09:46 | RAD REPORT ---
EXAM DESCRIPTION: RAD - Lumbar Spine 3 Views - 02/10/2018 1:09 am CLINICAL HISTORY: Slip and fall, back pain A preliminary report was provided at the time of the study and reviewed prior to final report. COMPARISON: None. FINDINGS: A three-view lumbar spine examination was performed. Lumbar bodies are normal in height an d alignment. No fracture or acute bony process seen. No disc space narrowing is seen. There is sugges ting of early degenerative disc disease at L3-4 and L4-5. Facet degenerative changes minimal. No pars defects identified. Numerous surgical clips overlie the anterior abdomen presumed to be from hernia repair. IMPRESSION: No compression fracture or acute finding. Disc and endplate degenerative changes are pre sent at L3-4 and L4-5. Concerns for disc herniation, occult bone process or central canal abnormality can be addressed with MR imaging.
--- NOTE | 2018-02-10 09:49 | RAD REPORT ---
EXAM DESCRIPTION: RAD - Sacrum And Coccyx - 02/10/2018 1:09 am CLINICAL HISTORY: Slip and fall, lower back and sacral pain A preliminary report was provided at the time of the study and reviewed prior to final report. COMPARISON: CT imaging September 11, 2017 FINDINGS: Lower lumbar degenerative changes are separately detailed. No sacral ala fracture identified. SI join t degenerative changes minimal. There is minimal degenerative change at the pubic symphysis as well. No displaced sacrum or coccyx fracture identified. There is some cortical irregularity in the superio r coccyx. Small fracture is not entirely excluded. If present there is no associated distraction or a ngulation. No pathologic bone process. IMPRESSION: Subtle cortical irregularity in the coccyx, questionable but not definitive for fracture . No displaced or angulated fracture present.
== END 2018-02-10 02:17 | disposition home or self-care (01) ==
LOC: ER 23:34
DX: M54.5 Low back pain (principal); W01.0XXA Fall on same level from slipping, tripping and stumbling without subsequent striking against object, initial encounter
CPT/HCPCS: 72100; 72220; 96372; 99283

== ENCOUNTER 2020-06-22 06:32 | Emergency (ER) | payer SELFPAY ==
[2020-06-22 07:00] LABS: Absolute Lymphocytes (CBC) 1.5 K/uL (0.7-4.9); Basophils % 0.3 % (0-1.3); Hematocrit 37.6 % (36.0-45.0); Lymphocytes % 38.3 % (15.3-44.8); MPV 8.2 fL (7.6-11.3); RBC Red Blood Cell Count 4.25 M/uL (3.86-4.86)
[2020-06-22 07:06] LABS: Protime INR 1.01
[2020-06-22 07:19] LABS: ALT/SGPT 16 U/L (12-78); AST/SGOT 12 U/L (15-37); Albumin 3.5 g/dL (3.4-5.0); Alkaline Phosphatase 53 U/L (45-117); BUN Blood Urea Nitrogen 18 mg/dL (7-18); Bicarbonate 25 mmol/L (21-32); Bilirubin Direct 0.2 mg/dL (0-0.2); Bilirubin Total 0.8 mg/dL (0.2-1.0); Glucose Level 92 mg/dL (74-106); Magnesium 2.1 mg/dL (1.8-2.4); NT PRO-BNP 70 pg/mL (<125); Potassium 3.8 mmol/L (3.5-5.1); Protein, Total 7.6 g/dL (6.4-8.2); Sodium Level 142 mmol/L (136-145); Troponin (Emerg Dept Use Only) < 0.02 ng/mL (0.0-0.045)
--- NOTE | 2020-06-22 08:29 | RAD REPORT ---
EXAM DESCRIPTION: RAD - Chest Single View - 06/22/2020 6:54 am CLINICAL HISTORY: CHEST PAIN Chest pain. COMPARISON: Chest Single View dated 10/12/2017; Chest Single View dated 11/20/2016; Abdomen Acute Serie s dated 02/05/2016; Chest Pa And Lat (2 Views) dated 09/21/2015 FINDINGS: Portable technique limits examination quality. The lungs are grossly clear. The heart is upper limit of normal in size. No displaced fractures. IMPRESSION: No acute intrathoracic process suspected.
[2020-06-22] MEDS ORDERED: KETOROLAC 30 MG/ML INJ ONE (09:50)
[2020-06-22] MEDS ORDERED: METHYLPREDNISOLONE 125 MG INJ ONE (09:50)
--- NOTE | 2020-06-22 10:24 | ER ---
Nurse's Notes [facility] Name: Hannah Durand Age: 55 yrs Sex: Female : 1965 Arrival Date: 06/22/2020 Time: 06:35 Bed 5 Private MD: Diagnosis: Chest pain, unspecified;Chest pain on breathing Presentation: 06/22 06:36 Chief complaint: EMS states: complaining of right sided chest pain, non radiating rr5 started about an hour ago. cough noted about 1 week now. Coronavirus screen: Client denies travel out of the [place] in the last 14 days. cough unrelated to allergies, runny nose, shortness of breath, Client presents with at least one sign or symptom that may indicate coronavirus-19. Standard/surgical mask placed on the client. Provider contacted for isolation considerations. Ebola Screen: Patient negative for fever greater than or equal to 101.5 degrees Fahrenheit, and additional compatible Ebola Virus Disease symptoms Patient denies exposure to infectious person. Patient denies travel to an Ebola-affected area in the 21 days before illness onset. Initial Sepsis Screen: Does the patient meet any 2 criteria? No. Patient's initial sepsis screen is negative. Does the patient have a suspected source of infection? Yes: Productive cough/pneumonia. Risk Assessment: Do you want to hurt yourself or someone else? Patient reports no desire to harm self or others. Onset of symptoms was June 22, 2020. 06:36 Method Of Arrival: EMS: [facility] rr5 06:36 Acuity: JOHN 3 rr5 06:36 Care prior to arrival: Medication(s) given: ASA, 325 mg. 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 - Social history:: Patient/guardian denies using alcohol, street drugs, The patient lives with family, Smoking status: unknown. - Family history:: not pertinent. Screenin:42 Abuse screen: Denies threats or abuse. Denies injuries from another. Nutritional mg2 screening: No deficits noted. Tuberculosis screening: No symptoms or risk factors identified. Fall Risk IV access (20 points). Assessment: 06:41 General: Appears in no apparent distress. comfortable, Behavior is calm, cooperative. mg2 Pain: Complains of pain in chest Pain does not radiate. Pain currently is 2 out of 10 on a pain scale. Quality of pain is described as aching, Pain began gradually, 1 hour ago. Is intermittent. Neuro: Level of Consciousness is awake, alert, obeys commands, Oriented to person, place, time, situation. Cardiovascular: Capillary refill < 3 seconds Rhythm is sinus rhythm. Respiratory: Reports cough that is Airway is patent Respiratory effort is even, unlabored, Respiratory pattern is regular, symmetrical. GI: No signs and/or symptoms were reported involving the gastrointestinal system. : No signs and/or symptoms were reported regarding the genitourinary system. EENT: No signs and/or symptoms were reported regarding the EENT system. Derm: Skin is intact, is healthy with good turgor, Skin is pink, warm \T\ dry. normal. Musculoskeletal: Circulation, motion, and sensation intact. Capillary refill < 3 seconds. 07:44 General: Appears in no apparent distress. comfortable, Behavior is calm, cooperative, jd3 appropriate for age. Pain: Complains of pain in chest and right arm Quality of pain is described as aching. Neuro: Level of Consciousness is awake, alert, obeys commands, Oriented to person, place, time, situation. Cardiovascular: Capillary refill < 3 seconds Patient's skin is warm and dry. Rhythm is regular. Respiratory: Reports cough that is dry, Airway is patent Respiratory effort is even, unlabored, Respiratory pattern is regular, symmetrical. GI: No signs and/or symptoms were reported involving the gastrointestinal system. : No signs and/or symptoms were reported regarding the genitourinary system. : No signs and/or symptoms were reported regarding the genitourinary system. EENT: No signs and/or symptoms were reported regarding the EENT system. Derm: Skin is intact, Skin is dry, Skin is normal, Skin temperature is warm. Musculoskeletal: Circulation, motion, and sensation intact. Range of motion: intact in all extremities. 08:44 Reassessment: Patient appears in no apparent distress at this time. No changes from jd3 previously documented assessment. Patient and/or family updated on plan of care and expected duration. Pain level reassessed. Patient is alert, oriented x 3, equal unlabored respirations, skin warm/dry/pink. awaiting results. 09:55 Reassessment: Patient appears in no apparent distress at this time. Patient and/or jd3 family updated on plan of care and expected duration. Pain level reassessed. Patient is alert, oriented x 3, equal unlabored respirations, skin warm/dry/pink. awaiting results. 10:38 Reassessment: Patient appears in no apparent distress at this time. Patient and/or jd3 family updated on plan of care and expected duration. Pain level reassessed. Patient is alert, oriented x 3, equal unlabored respirations, skin warm/dry/pink. awaiting ride for discharge Patient states feeling better. Vital Signs: 06:36 BP 154 / 94; Pulse 73; Resp 19; Temp 97.9; Pulse Ox 100% ; Weight 90.72 kg; Height 6 rr5 ft. 0 in. (182.88 cm); Pain 9/10; 07:45 BP 139 / 89; Pulse 65; Resp 16 S; Temp 97.2(TE); Pulse Ox 100% on R/A; jd3 08:45 BP 129 / 80; Pulse 60; Resp 16 S; Pulse Ox 100% on R/A; jd3 09:55 BP 139 / 80; Pulse 78; Resp 17 S; Pulse Ox 99% on R/A; jd3 10:38 BP 141 / 89; Pulse 72; Resp 16 S; Pulse Ox 99% on R/A; jd3 06:36 Body Mass Index 27.12 (90.72 kg, 182.88 cm) rr5 ED Course: 06:35 Patient arrived in ED. rr5 06:35 Jorge A Freeman MD is Attending Physician. ma2 06:38 Triage completed. rr5 06:38 Arm band placed on right wrist. rr5 06:41 Ricky Díaz, CYNTHIA is Primary Nurse. mg2 06:42 No provider procedures requiring assistance completed. Inserted saline lock: 24 gauge mg2 in right forearm, using aseptic technique. Blood collected. by PAULO Rose tech. Patient maintains SpO2 saturation greater than 95% on room air. 06:43 Patient has correct armband on for positive identification. Placed in gown. Bed in low rr5 position. Call light in reach. interdisciplinary professor on. Pulse ox on. NIBP on. 06:43 Patient has correct armband on for positive identification. interdisciplinary professor on. Pulse mg2 ox on. NIBP on. 06:54 XRAY Chest (1 view) In Process Unspecified. EDMS 07:08 Primary Nurse role handed off by Ricyk Díaz RN jd3 07:08 Brett Colvin RN is Primary Nurse. jd3 07:09 Attending Physician role handed off by Jorge A Freeman MD kdr 07:09 Frank Bell MD is Attending Physician. kdr 07:15 Primary Nurse role handed off by Brett Colvin RN bd 07:22 Brett Colvin RN is Primary Nurse. jd3 10:40 IV discontinued, intact, bleeding controlled, No redness/swelling at site. Pressure jd3 dressing applied. Administered Medications: 06:38 CANCELLED (Other Intervention Used): Aspirin Chewable Tablet 324 mg PO once; 81 mg rr5 tablets x 4 09:37 Drug: TORadol - (ketorolac) 15 mg Route: IVP; Site: right forearm; jd3 10:30 Follow up: Response: No adverse reaction jd3 09:37 Drug: SOLU-Medrol (methylPrednisoLONE) 125 mg Route: IVP; Site: right forearm; jd3 10:30 Follow up: Response: No adverse reaction jd3 Outcome: 10:23 Discharge ordered by . kdr 10:40 Condition: stable jd3 10:40 Discharge instructions given to patient, Instructed on discharge instructions, follow up and referral plans. medication usage, Demonstrated understanding of instructions, follow-up care, medications, Prescriptions given X 4. 10:55 Discharged to home ambulatory, with family. jd3 10:55 Patient left the ED. jd3 Signatures: Dispatcher [employer] EDMS Carmelita Gonzalez bd Frank Bell MD MD kdr Brtet Colvin RN RN jd3 Jorge A Freeman MD MD [facility] Ricky Díaz, CYNTHIA RN mg2 Soctt Bonilla RN RN rr5 Corrections: (The following items were deleted from the chart) 06:44 06:43 lmp unknown mg2 rr5 06:45 06:32 PSHx: None; rr5 rr5
--- NOTE | 2020-06-22 10:24 | EDPHYS ---
Physician Documentation [facility] Name: Hannah Durand Age: 55 yrs Sex: Female : 1965 Arrival Date: 06/22/2020 Time: 06:35 Bed 5 Private MD: ED Physician Frank Bell HPI: 06/22 06:36 This 55 yrs old Black Female presents to ER via Unassigned with complaints of Chest ma2 Pain. 06:36 The patient or guardian reports chest pain that is located primarily in the substernal ma2 area. Onset: suddenly, 1 day(s) ago. Associated signs and symptoms: Pertinent negatives: cough, lower extremity pain, lightheadedness, syncope, vomiting. Severity of pain: At its worst the pain was moderate in the emergency department the pain is unchanged. The patient has not experienced similar symptoms in the past. 06:50 patient states she has cough x 1 day as well. 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 - Social history:: Patient/guardian denies using alcohol, street drugs, The patient lives with family, Smoking status: unknown. - Family history:: not pertinent. ROS: 06:36 Constitutional: Negative for fever, chills, and weight loss. ma2 06:36 All other systems are negative. Exam: 06:36 Constitutional: This is a well developed, well nourished patient who is awake, alert, ma2 and in no acute distress. ENT: Nares patent. No nasal discharge, no septal abnormalities noted. Tympanic membranes are normal and external auditory canals are clear. Oropharynx with no redness, swelling, or masses, exudates, or evidence of obstruction, uvula midline. Mucous membranes moist. Neck: Trachea midline, no thyromegaly or masses palpated, and no cervical lymphadenopathy. Supple, full range of motion without nuchal rigidity, or vertebral point tenderness. No Meningismus. Chest/axilla: Normal chest wall appearance and motion. Nontender with no deformity. No lesions are appreciated. Cardiovascular: Regular rate and rhythm with a normal S1 and S2. No gallops, murmurs, or rubs. Normal PMI, no JVD. No pulse deficits. Respiratory: Lungs have equal breath sounds bilaterally, clear to auscultation and percussion. No rales, rhonchi or wheezes noted. No increased work of breathing, no retractions or nasal flaring. Abdomen/GI: Soft, non-tender, with normal bowel sounds. No distension or tympany. No guarding or rebound. No evidence of tenderness throughout. Back: No spinal tenderness. No costovertebral tenderness. Full range of motion. Skin: Warm, dry with normal turgor. Normal color with no rashes, no lesions, and no evidence of cellulitis. MS/ Extremity: Pulses equal, no cyanosis. Neurovascular intact. Full, normal range of motion. Neuro: Awake and alert, GCS 15, oriented to person, place, time, and situation. Cranial nerves II-XII grossly intact. Motor strength 5/5 in all extremities. Sensory grossly intact. Cerebellar exam normal. Normal gait. Vital Signs: 06:36 BP 154 / 94; Pulse 73; Resp 19; Temp 97.9; Pulse Ox 100% ; Weight 90.72 kg; Height 6 rr5 ft. 0 in. (182.88 cm); Pain 9/10; 07:45 BP 139 / 89; Pulse 65; Resp 16 S; Temp 97.2(TE); Pulse Ox 100% on R/A; jd3 08:45 BP 129 / 80; Pulse 60; Resp 16 S; Pulse Ox 100% on R/A; jd3 09:55 BP 139 / 80; Pulse 78; Resp 17 S; Pulse Ox 99% on R/A; jd3 10:38 BP 141 / 89; Pulse 72; Resp 16 S; Pulse Ox 99% on R/A; jd3 06:36 Body Mass Index 27.12 (90.72 kg, 182.88 cm) rr5 MDM: 06:35 Patient medically screened. ma2 06:36 Differential diagnosis: anxiety, chest wall pain, esophagitis. ma2 10:26 Data reviewed: vital signs, nurses notes, lab test result(s), EKG, radiologic studies. kdr Counseling: I had a detailed discussion with the patient and/or guardian regarding: the historical points, exam findings, and any diagnostic results supporting the discharge/admit diagnosis, lab results, radiology results, the need for outpatient follow up. Response to treatment: the patient's symptoms have markedly improved after treatment. 06/22 06:36 Order name: Basic Metabolic Panel 06/22 06:36 Order name: CBC with Diff; Complete Time: 08:55 ma2 06/22 06:36 Order name: LFT's; Complete Time: 08:55 06/22 06:36 Order name: Magnesium; Complete Time: 08:55 06/22 06:36 Order name: NT PRO-BNP; Complete Time: 08:55 ma06/22 06:36 Order name: PT-INR; Complete Time: 08:55 06/22 06:36 Order name: Troponin (emerg Dept Use Only); Complete Time: 08:55 ma06/22 06:36 Order name: XRAY Chest (1 view); Complete Time: 08:55 06/22 06:36 Order name: Basic Metabolic Panel; Complete Time: 08:55 EDMS 06/22 09:00 Order name: Troponin (emerg Dept Use Only): draw two hours after initial draw; Complete kdr Time: :06/22 09:01 Order name: SARS-COV-2 RT PCR; Complete Time: 09:31 EDMS 06/22 06:36 Order name: EKG; Complete Time: 06:37 ma06/22 06:36 Order name: Cardiac monitoring; Complete Time: 06:41 06/22 06:36 Order name: EKG - Nurse/Tech; Complete Time: 06:41 06/22 06:36 Order name: IV Saline Lock; Complete Time: 06:41 06/22 06:36 Order name: Labs collected and sent; Complete Time: 06:41 06/22 06:36 Order name: O2 Per Protocol; Complete Time: 06:41 06/22 06:36 Order name: O2 Sat Monitoring; Complete Time: 06:41 ma2 Administered Medications: 06:38 CANCELLED (Other Intervention Used): Aspirin Chewable Tablet 324 mg PO once; 81 mg rr5 tablets x 4 09:37 Drug: TORadol - (ketorolac) 15 mg Route: IVP; Site: right forearm; jd3 10:30 Follow up: Response: No adverse reaction jd3 09:37 Drug: SOLU-Medrol (methylPrednisoLONE) 125 mg Route: IVP; Site: right forearm; jd3 10:30 Follow up: Response: No adverse reaction jd3 Disposition: 06/22/20 10:23 Discharged to Home. Impression: Chest pain, unspecified, Chest pain on breathing. - Condition is Stable. - Discharge Instructions: Chest Wall Pain, Berr-[id number], Nonspecific Chest Pain, [id number]. - Prescriptions for Diclofenac Sodium 75 mg Oral Tablet Sustained Release - take 1 tablet by ORAL route 2 times per day; 30 tablet. Zithromax Z- Fredy 250 mg Oral Tablet - take 1 tablet by ORAL route as directed for 5 days Day 1 - take two (2) tablets one time. Day 2, 3, 4 , 5 take one (1) tablet once daily.; 6 tablet. Medrol (Fredy) 4 mg Oral Tablets, Dose Pack - take 1 tablet by ORAL route as directed - follow package instructions; 1 packet. Albuterol Sulfate 90 mcg/actuation - inhale 1-2 puff by INHALATION route every 4-6 hours; 1 Inhaler. - Medication Reconciliation Form, Thank You Letter, Antibiotic Education form. - Follow up: Private Physician; When: 2 - 3 days; Reason: If symptoms return, Further diagnostic work-up, Recheck today's complaints, Continuance of care, Re-evaluation by your physician. - Problem is new. - Symptoms have improved. Signatures: Dispatcher [employer] [facility] Frank Bell MD MD kdr Davies, Jonathon RN RN jd3 Jorge A Freeman MD MD ma2 Scott Bonilla, CYNTHIA RN rr5 Corrections: (The following items were deleted from the chart) 06:38 06:36 Aspirin Chewable Tablet 324 mg PO once; 81 mg tablets x 4 ordered. ma2 rr5 06:45 06:32 PSHx: None; rr5 rr5 08:19 06:40 CORONAVIRUS+.ARIA ordered. [facility] EDMS 10:55 10:23 06/22/2020 10:23 Discharged to Home. Impression: Chest pain, unspecified; Chest jd3 pain on breathing. Condition is Stable. Prescriptions for Diclofenac Sodium 75 mg Oral Tablet Sustained Release - take 1 tablet by ORAL route 2 times per day; 30 tablet, Zithromax Z-Fredy 250 mg Oral Tablet - take 1 tablet by ORAL route as directed for 5 days Day 1 - take two (2) tablets one time. Day 2, 3, 4 , 5 take one (1) tablet once daily.; 6 tablet, Medrol (Fredy) 4 mg Oral Tablets, Dose Pack - take 1 tablet by ORAL route as directed - follow package instructions; 1 packet, Albuterol Sulfate 90 mcg/actuation - inhale 1-2 puff by INHALATION route every 4-6 hours; 1 Inhaler. and Forms are Medication Reconciliation Form, Thank You Letter, Antibiotic Education, Prescription Opioid Use. Follow up: Private Physician; When: 2 - 3 days; Reason: If symptoms return, Further diagnostic work-up, Recheck today's complaints, Continuance of care, Re-evaluation by your physician. Problem is new. Symptoms have improved. kdr
[2020-06-22 11:10] VITALS: TEMP 97.2
[2020-06-22 11:18] VITALS: O2SAT 99
[2020-06-22 11:23] VITALS: BP 141/89
--- NOTE | 2020-06-24 07:43 | EKG ---
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
== END 2020-06-22 10:55 | disposition home or self-care (01) ==
LOC: ER 06:32
DX: R07.9 Chest pain, unspecified (principal); R07.1 Chest pain on breathing; Z20.822 Contact with and (suspected) exposure to COVID-19; I10 Essential (primary) hypertension
CPT/HCPCS: 36415; 71045; 80048; 80076; 83735; 83880; 84484; 85025; 85610; 93005; 96374; 96375; 99285; J2930; U0003

== ENCOUNTER 2021-05-15 06:43 | Emergency (ER) | payer BC ==
[2021-05-15] MEDS ORDERED: KETOROLAC 30 MG/ML INJ ONE (08:00)
--- NOTE | 2021-05-15 08:14 | RAD REPORT ---
EXAM DESCRIPTION: RAD - Shoulder Left 2 View - 05/15/2021 8:06 am CLINICAL HISTORY: PAIN COMPARISON: Shoulder Left 2 View dated 03/30/2021 TECHNIQUE: Internal and external rotation views of the left shoulder were obtained. FINDINGS: There is no fracture or dislocation. Acromial humeral joint space is normal range with no abnormal soft tissue calcification. No AC joint separation. Mild degenerative changes are present andrzej ng the undersurface of the acromion and inferior margin of the AC joint. No acute or destructive bone findings. IMPRESSION: Mild left shoulder degenerative changes similar to the 03/30/2021 study. No acute findi ng. Continued, unexplained left shoulder symptoms can be further evaluated with outpatient MRI imaging.
--- NOTE | 2021-05-15 08:24 | EDPHYS ---
Physician Documentation [facility] Name: Hannah Durand Age: 56 yrs Sex: Female : 1965 Arrival Date: 05/15/2021 Time: 06:46 Bed 5 Private MD: ED Physician Kyle Michael HPI: 05/15 06:53 This 56 yrs old Black Female presents to ER via Unassigned with complaints of Shoulder kb Pain. 06:53 The patient or guardian complains of pain, that is acute, tenderness. left shoulder. kb Context: The problem was sustained at home, resulted from an unknown reason, The patient reports no decreased range of motion. The patient reports no obvious deformity. Onset: The symptoms/episode began/occurred 2 week(s) ago. Modifying factors: the symptoms are alleviated by nothing. The symptoms are aggravated by nothing. Associated signs and symptoms: The patient has no apparent associated signs or symptoms. Severity of symptoms: At their worst the symptoms were moderate, in the emergency department the symptoms are unchanged. Treatment prior to arrival includes: no previous treatment. The patient has not experienced similar symptoms in the past. The patient has not recently seen a physician. Pt reports she woke up with left posterior shoulder pain 2 weeks ago. States she came in today because she is tired of the pain . Historical: - Allergies: 07:07 NKDA; as6 - Home Meds: 07:07 "blood pressure pill" [Active]; as6 - PMHx: 07:07 Hypertension; as6 - PSHx: 07:07 None; as6 - Immunization history:: Client reports having NOT received the Covid vaccine. - Social history:: Smoking status: Patient denies any tobacco usage or history of. ROS: 06:55 Constitutional: Negative for fever, chills, and weight loss. kb 06:55 MS/extremity: Positive for pain, tenderness, of the posterior aspect of left shoulder. 06:55 All other systems are negative. Exam: 06:54 Constitutional: This is a well developed, well nourished patient who is awake, alert, kb and in no acute distress. Head/Face: Normocephalic, atraumatic. ENT: Moist Mucous membranes Cardiovascular: Regular rate and rhythm with a normal S1 and S2. No gallops, murmurs, or rubs. No pulse deficits. Respiratory: Respirations even and unlabored. No increased work of breathing. Talking in full sentences Skin: Warm, dry with normal turgor. Normal color. MS/ Extremity: Pulses equal, no cyanosis. Neurovascular intact. Full, normal range of motion. Neuro: Awake and alert, GCS 15, oriented to person, place, time, and situation. Moves all extremities. Normal gait. Psych: Awake, alert, with orientation to person, place and time. Behavior, mood, and affect are within normal limits. 06:54 Musculoskeletal/extremity: Extremities: grossly normal except: noted in the posterior aspect of left shoulder: pain, tenderness, ROM: intact in all extremities, Circulation is intact in all extremities. Sensation intact. Vital Signs: 06:55 BP 153 / 89; Pulse 73; Resp 18 S; Temp 98.4(O); Pulse Ox 100% on R/A; Weight 90.72 kg as6 (R); Height 6 ft. (182.88 cm) (R); Pain 10/10; 07:43 BP 132 / 91; Pulse 72; Resp 17; Pulse Ox 98% on R/A; corbett 06:55 Body Mass Index 27.12 (90.72 kg, 182.88 cm) as6 MDM: 06:47 Patient medically screened. kb 06:54 Data reviewed: vital signs, nurses notes. Data interpreted: Pulse oximetry: on room air kb is 100 %. Interpretation: normal. 08:22 Counseling: I had a detailed discussion with the patient and/or guardian regarding: the kb historical points, exam findings, and any diagnostic results supporting the discharge/admit diagnosis, radiology results, the need for outpatient follow up, a orthopedic surgeon, to return to the emergency department if symptoms worsen or persist or if there are any questions or concerns that arise at home. 05/15 06:50 Order name: Shoulder Left (2 View) XRAY; Complete Time: 08:18 kb Administered Medications: 08:00 Drug: Ketorolac 30 mg Route: IM; Site: right gluteus; corbett 08:00 Follow up: Response: No adverse reaction corbett Disposition: 05/16 03:21 Co-signature as Attending Physician, Kyle Michael MD. [email or web address] Disposition Summary: 05/15/21 08:22 Discharge Ordered Location: Home kb Condition: Stable kb Diagnosis - Pain in left shoulder kb Followup: kb - With: Emergency Department - When: As needed - Reason: Worsening of condition Followup: kb - With: Private Physician - When: 2 - 3 days - Reason: Recheck today's complaints, Continuance of care, Re-evaluation by your physician Discharge Instructions: - Discharge Summary Sheet kb - Musculoskeletal Pain kb - Shoulder Pain, [id number] kb Forms: - Medication Reconciliation Form kb - Thank You Letter kb - Antibiotic Education kb - Prescription Opioid Use kb Prescriptions: - Cyclobenzaprine 10 mg Oral Tablet - take 1 tablet by ORAL route every 8 hours As needed; 15 tablet; Refills: 0, kb Product Selection Permitted - Diclofenac Sodium 75 mg Oral tablet,delayed release (DR/EC) - take 1 tablet by ORAL route 2 times per day As needed; 30 tablet; Refills: 0, kb Product Selection Permitted Signatures: Dispatcher [employer] EDMee Carbajal, KELVIN-C Kyle Padilla MD MD 7 Prem Choi RN RN as6 Jayla Rivera RN RN corbett Corrections: (The following items were deleted from the chart) 05/15 07:08 07:07 PSHx: Unable to Obtain; as6 as6 07:08 07:07 PSHx: Unable to Obtain; as6 as6
--- NOTE | 2021-05-15 08:24 | ER ---
Nurse's Notes [facility] Name: Hannah Durand Age: 56 yrs Sex: Female : 1965 Arrival Date: 05/15/2021 Time: 06:46 Bed 5 Private MD: Diagnosis: Pain in left shoulder Presentation: 05/15 06:55 Chief complaint: Patient states: "My left shoulder has been hurting me for 2 weeks and as6 it just keeps getting worse" pt denies injury. Coronavirus screen: At this time, the client does not indicate any symptoms associated with coronavirus-19. Ebola Screen: No symptoms or risks identified at this time. Initial Sepsis Screen: Does the patient meet any 2 criteria? No. Patient's initial sepsis screen is negative. Does the patient have a suspected source of infection? No. Patient's initial sepsis screen is negative. Risk Assessment: Do you want to hurt yourself or someone else? Patient reports no desire to harm self or others. Onset of symptoms was May 03, 2021. 06:55 Method Of Arrival: Ambulatory as6 06:55 Acuity: JOHN 4 as6 Historical: - Allergies: 07:07 NKDA; as6 - Home Meds: 07:07 "blood pressure pill" [Active]; as6 - PMHx: 07:07 Hypertension; as6 - PSHx: 07:07 None; as6 - Immunization history:: Client reports having NOT received the Covid vaccine. - Social history:: Smoking status: Patient denies any tobacco usage or history of. Screenin:07 Abuse screen: Denies threats or abuse. Denies injuries from another. Nutritional as6 screening: No deficits noted. Tuberculosis screening: No symptoms or risk factors identified. Fall Risk None identified. Assessment: 07:04 General: Appears in no apparent distress. Behavior is calm, cooperative. Pain: as6 Complains of pain in left shoulder Pain does not radiate. Quality of pain is described as sharp. Musculoskeletal: Reports pain in left shoulder. Vital Signs: 06:55 BP 153 / 89; Pulse 73; Resp 18 S; Temp 98.4(O); Pulse Ox 100% on R/A; Weight 90.72 kg as6 (R); Height 6 ft. (182.88 cm) (R); Pain 10/10; 07:43 BP 132 / 91; Pulse 72; Resp 17; Pulse Ox 98% on R/A; corbett 06:55 Body Mass Index 27.12 (90.72 kg, 182.88 cm) as ED Course: 06:46 Patient arrived in ED. ja2 06:47 Prem Choi, RN is Primary Nurse. as6 06:47 Mee Rae FNP-C is [facility]. kb 06:47 Kyle Michael MD is Attending Physician. kb 07:02 Triage completed. as6 07:02 Arm band placed on. as6 07:08 Bed in low position. Call light in reach. Side rails up X2. Pulse ox on. NIBP on. Warm as6 blanket given. 07:34 Primary Nurse role handed off by Prem Choi RN 07:43 No provider procedures requiring assistance completed. corbett 08:06 Shoulder Left (2 View) XRAY In Process Unspecified. EDMS 08:31 Patient did not have IV access during this emergency room visit. corbett Administered Medications: 08:00 Drug: Ketorolac 30 mg Route: IM; Site: right gluteus; corbett 08:00 Follow up: Response: No adverse reaction corbett Outcome: 08:22 Discharge ordered by . kb 08:31 Discharged to home corbett 08:31 Condition: good 08:31 Discharge instructions given to patient, Prescriptions given X 2. 08:31 Patient left the ED. corbett Signatures: Dispatcher [employer] EDFL Mee Rae FNP-C PLATE CUTTER-Amirah Farrar Christina Borja 2 Prem Choi RN RN as6 Jayla Rivera RN RN corbett Corrections: (The following items were deleted from the chart) 07:08 07:07 PSHx: Unable to Obtain; as6 as6 07:08 07:07 PSHx: Unable to Obtain; as6 as6
[2021-05-15 08:35] VITALS: TEMP 98.4
[2021-05-15 08:37] VITALS: BP 132/91; O2SAT 98
== END 2021-05-15 08:31 | disposition home or self-care (01) ==
LOC: ER 06:43
DX: M25.512 Pain in left shoulder (principal)
CPT/HCPCS: 96372; 99284

== ENCOUNTER 2021-08-26 22:07 | Emergency (ER) | payer BC ==
[2021-08-26] MEDS ORDERED: HYDROCODONE/APAP 5/325 MG TAB ONE (22:53)
--- NOTE | 2021-08-26 23:26 | ER ---
Nurse's Notes [facility] Name: Hannah Durand Age: 56 yrs Sex: Female : 1965 Arrival Date: 08/26/2021 Time: 22:09 Bed 16 Private MD: Iam Gamboa E Diagnosis: Peripheral edema Presentation: 08/26 22:13 Chief complaint: Patient states: "My whole left leg down to my foot is bothering me for tw5 a couple of weeks. It is swollen.". Coronavirus screen: Vaccine status: Patient reports being unvaccinated. Ebola Screen: Patient negative for fever greater than or equal to 101.5 degrees Fahrenheit, and additional compatible Ebola Virus Disease symptoms Patient denies exposure to infectious person. Patient denies travel to an Ebola-affected area in the 21 days before illness onset. Initial Sepsis Screen: Does the patient meet any 2 criteria? No. Patient's initial sepsis screen is negative. Does the patient have a suspected source of infection? No. Patient's initial sepsis screen is negative. Risk Assessment: Do you want to hurt yourself or someone else? Patient reports no desire to harm self or others. Onset of symptoms is unknown. 22:13 Method Of Arrival: Ambulatory tw5 22:13 Acuity: JOHN 3 tw5 Triage Assessment: 22:15 General: Appears in no apparent distress. Behavior is calm, cooperative, appropriate tw5 for age. General: Appears uncomfortable. Pain: Complains of pain in left leg Pain currently is 10 out of 10 on a pain scale. DIRECTOR OF MEDICAL REVIEW: 22:15 LMP N/A - Post-menopause tw5 Historical: - Allergies: 22:15 NKDA; tw5 - Home Meds: 22:15 None [Active]; tw5 - PMHx: 22:15 Hypertension; tw5 - PSHx: 22:15 None; tw5 - Immunization history:: Flu vaccine is not up to date. - Social history:: Smoking status: Patient/guardian denies using tobacco, the patient reports quitting approximately 3 years ago. Screenin/18 00:01 Abuse screen: Denies threats or abuse. Nutritional screening: No deficits noted. ll3 Tuberculosis screening: No symptoms or risk factors identified. Fall Risk None identified. Vital Signs: 08/26 22:13 Pulse 81; Resp 18; Temp 98.6(O); Pulse Ox 97% ; Weight 81.65 kg; Height 6 ft. 1 in. tw5 (185.42 cm); Pain 10/10; 22:13 BP 139 / 93; tw5 22:13 Body Mass Index 23.75 (81.65 kg, 185.42 cm) tw5 ED Course: 22:09 Patient arrived in ED. as 22:10 Iam Gamboa MD is Private Physician. as 22:15 Triage completed. tw5 22:15 Arm band placed on. tw5 22:18 Jude Sauer, CYNTHIA is Primary Nurse. ll3 22:20 Antonio Colon PA is PHCP. [facility] 22:20 Jt Yeboah MD is Attending Physician. [facility] 22:56 Extremity Venous Uni Ltd In Process Unspecified. EDAK 23:25 Iam Gamboa MD is Referral Physician. [facility] 08/27 00:01 Patient has correct armband on for positive identification. Bed in low position. Call ll3 light in reach. Side rails up X 1. 00:01 No provider procedures requiring assistance completed. Patient did not have IV access ll3 during this emergency room visit. Administered Medications: 08/26 22:48 Drug: HYDROcodone-acetaminophen 5 mg-325 mg 1 tabs Route: PO; ld1 23:43 Follow up: Response: No adverse reaction; No change in condition ll3 08/27 00:00 Drug: Ketorolac 30 mg Route: IM; Site: left deltoid; ll3 00:00 Follow up: Response: Medication administered at discharge. ll3 Medication: 00:02 VIS not applicable for this client. ll3 Outcome: 08/26 23:25 Discharge ordered by . [facility] 08/27 00:01 Discharged to home ambulatory, with family. ll3 Condition: stable Discharge instructions given to patient, family, Instructed on discharge instructions, follow up and referral plans. medication usage, Demonstrated understanding of instructions, follow-up care, medications, Prescriptions given X 2. 00:02 Patient left the ED. ll3 Signatures: Dispatcher [employer] EDAK Antonio Colon PA PA jmm Martinez, Amelia as Dibbern, Lauren, RN RN ld1 Ritika Torre tw5 Jude Sauer RN RN ll3
--- NOTE | 2021-08-26 23:26 | EDPHYS ---
Physician Documentation [facility] Name: Hannah Durand Age: 56 yrs Sex: Female : 1965 Arrival Date: 08/26/2021 Time: 22:09 Bed 16 Private MD: Iam Gamboa E ED Physician Jt Yebaoh HPI: 08/26 22:22 This 56 yrs old Black Female presents to ER via Ambulatory with complaints of Leg jmm Swelling, Feet Swelling. 22:22 The patient presents with pain. Onset: The symptoms/episode began/occurred gradually, 2 jmm week(s) ago. Modifying factors: The symptoms are alleviated by nothing. the symptoms are aggravated by nothing. Associated signs and symptoms: Pertinent positives: swelling. This is a 56-year-old female with history of hypertension the presents emerged part with complaints of left leg pain and swelling beginning approximately 2 to 3 weeks ago. Patient states symptoms are worse with standing. Patient denies fever or chills. Denies chest pain, denies shortness of breath.. 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 - Social history:: Smoking status: Patient/guardian denies using tobacco, the patient reports quitting approximately 3 years ago. ROS: 22:22 Constitutional: Negative for fever, chills, and weight loss, Cardiovascular: Negative jmm for chest pain, palpitations, and edema, Respiratory: Negative for shortness of breath, cough, wheezing, and pleuritic chest pain. 22:22 MS/extremity: Positive for pain, swelling. 22:22 All other systems are negative. Exam: 22:22 Constitutional: This is a well developed, well nourished patient who is awake, alert, jmm and in no acute distress. Head/Face: atraumatic. Eyes: EOMI, no conjunctival erythema appreciated ENT: Moist Mucus Membranes Neck: Trachea midline, Supple Chest/axilla: Normal chest wall appearance and motion. Cardiovascular: Regular rate and rhythm. No edema appreciated Respiratory: Normal respirations, no respiratory distress appreciated Abdomen/GI: Non distended, soft Back: Normal ROM Skin: General appearance color normal 22:22 Musculoskeletal/extremity: Edema noted to the left lower leg, full dorsalis pedis pulse appreciated, compartments are soft, neurovascular intact. 22:22 Skin: Appearance: Color: normal in color. 22:22 Neuro: Orientation: is normal, Mentation: is normal, Memory: is normal. 22:22 Psych: Behavior/mood is pleasant, cooperative. Vital Signs: 22:13 Pulse 81; Resp 18; Temp 98.6(O); Pulse Ox 97% ; Weight 81.65 kg; Height 6 ft. 1 in. tw5 (185.42 cm); Pain 10/10; 22:13 BP 139 / 93; tw5 22:13 Body Mass Index 23.75 (81.65 kg, 185.42 cm) tw5 MDM: 22:22 Patient medically screened. nilesh 23:24 Data reviewed: vital signs, nurses notes. Counseling: I had a detailed discussion with nilesh the patient and/or guardian regarding: the historical points, exam findings, and any diagnostic results supporting the discharge/admit diagnosis, radiology results, the need for outpatient follow up, to return to the emergency department if symptoms worsen or persist or if there are any questions or concerns that arise at home. ED course: Ultrasound was negative. I do not currently suspect DVT. Patient vital signs are normal. Do not currently suspect cellulitis, patient is afebrile, skin is not indurated or warm. Patient vies follow-up PCP and otherwise given strict return precautions. Patient understood agrees plan of care.. 08/26 22:32 Order name: Extremity Venous Uni Ltd EDMS Administered Medications: 22:48 Drug: HYDROcodone-acetaminophen 5 mg-325 mg 1 tabs Route: PO; ld1 23:43 Follow up: Response: No adverse reaction; No change in condition ll3 08/27 00:00 Drug: Ketorolac 30 mg Route: IM; Site: left deltoid; ll3 00:00 Follow up: Response: Medication administered at discharge. ll3 Disposition: 00:25 Co-signature as Attending Physician, Jt Yeboah MD. rn Disposition Summary: 08/26/21 23:25 Discharge Ordered Location: Home [facility] Condition: Stable [facility] Diagnosis - Peripheral edema [facility] Followup: [facility] - With: Iam Gamboa MD - When: 1 - 2 days - Reason: Recheck today's complaints, Continuance of care, Re-evaluation by your physician Discharge Instructions: - Discharge Summary Sheet jmm - Peripheral Edema [facility] Forms: - Medication Reconciliation Form jm - Thank You Letter jmrenetta - Antibiotic Education jmm - Prescription Opioid Use jmm - Work release form ll3 Prescriptions: - Diclofenac Sodium 75 mg Oral Tablet Sustained Release - take 1 tablet by ORAL route 2 times per day; 30 tablet; Refills: 0, Product jm Selection Permitted - orphenadrine citrate 100 mg Oral Tablet Sustained Release - take 1 tablet by ORAL route 2 times per day As needed; 20 tablet; Refills: 0, jm Product Selection Permitted Signatures: Dispatcher [employer] EDMS Antonio Colon PA PA jmm Nieto, Roman, MD MD rn Dibbern, Lauren RN RN ld1 Ritika Torre tw5 Jude Sauer RN RN ll3 Corrections: (The following items were deleted from the chart) 08/26 22:56 22:46 Extremity Venous Uni Ltd+US.RAD.BRZ ordered. EDWI EDMS
[2021-08-27] MEDS ORDERED: KETOROLAC 30 MG/ML INJ ONE (00:01)
[2021-08-27 00:23] VITALS: BP 139/93; TEMP 98.6; O2SAT 97
--- NOTE | 2021-08-27 08:14 | RAD REPORT ---
EXAM DESCRIPTION: US - Extremity Venous Uni Ltd - 08/26/2021 10:54 pm CLINICAL HISTORY: SWELLING Leg swelling and edema. COMPARISON: No comparisons FINDINGS: Left lower extremity venous system was interrogated with Doppler technique. Normal flow, c ompressibility and augmentation was noted. There is no DVT present. IMPRESSION: No evidence of left lower extremity deep venous thrombosis.
== END 2021-08-27 00:02 | disposition home or self-care (01) ==
LOC: ER 22:07
DX: R60.9 Edema, unspecified (principal); I10 Essential (primary) hypertension
CPT/HCPCS: 93971; 96372; 99283

== ENCOUNTER 2021-12-05 13:29 | Emergency (ER) | payer BC ==
[2021-12-05] MEDS ORDERED: KETOROLAC 30 MG/ML INJ ONE (14:17)
--- NOTE | 2021-12-05 14:18 | RAD REPORT ---
EXAM DESCRIPTION: US - Extremity Venous Uni Ltd - 12/05/2021 2:09 pm CLINICAL HISTORY: PAIN COMPARISON: None. TECHNIQUE: Real-time sonographic evaluation of the right lower extremity deep venous systems was per formed. FINDINGS: Normal compressibility, flow augmentation, phasic flow and spontaneous flow are identified in the right lower extremity common femoral, superficial femoral, popliteal and posterior tibial vei ns. No intraluminal filling defects seen. IMPRESSION: No DVT in the right lower extremity.
--- NOTE | 2021-12-05 14:23 | EDPHYS ---
Physician Documentation [facility] Name: Hannah Durand Age: 56 yrs Sex: Female : 1965 Arrival Date: 12/05/2021 Time: 13:31 Bed 11 Private MD: Iam Gamboa E ED Physician Issac Gomes HPI: 12/05 13:45 This 56 yrs old Black Female presents to ER via Ambulatory with complaints of Leg Pain. jh7 13:45 The patient presents with pain, that is acute. The complaints affect the right calf. jh7 Onset: The symptoms/episode began/occurred 4 month(s) ago. Patient reports right calf pain for the past 4 months. States that it aches at night and keeps her from sleep at times. States that she walks on that leg often and thinks that may be the problem.. 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 - Social history:: Smoking status: Patient denies any tobacco usage or history of. ROS: 13:45 Constitutional: Negative for fever, chills, and weight loss, Eyes: Negative for injury, jh7 pain, redness, and discharge, Cardiovascular: Negative for chest pain, palpitations, and edema, Respiratory: Negative for shortness of breath, cough, wheezing, and pleuritic chest pain, Abdomen/GI: Negative for abdominal pain, nausea, vomiting, diarrhea, and constipation, Back: Negative for injury and pain, Skin: Negative for injury, rash, and discoloration, Neuro: Negative for headache, weakness, numbness, tingling, and seizure. 13:45 MS/extremity: Positive for pain, Negative for decreased range of motion, swelling, tenderness. 13:45 All other systems are negative. Exam: 13:45 Constitutional: This is a well developed, well nourished patient who is awake, alert, jh7 and in no acute distress. Head/Face: Normocephalic, atraumatic. Cardiovascular: Regular rate and rhythm with a normal S1 and S2. No gallops, murmurs, or rubs. Normal PMI, no JVD. No pulse deficits. Respiratory: Lungs have equal breath sounds bilaterally, clear to auscultation and percussion. No rales, rhonchi or wheezes noted. No increased work of breathing, no retractions or nasal flaring. Abdomen/GI: Soft, non-tender, with normal bowel sounds. No distension or tympany. No guarding or rebound. No evidence of tenderness throughout. Back: No spinal tenderness. No costovertebral tenderness. Full range of motion. Skin: Warm, dry with normal turgor. Normal color with no rashes, no lesions, and no evidence of cellulitis. MS/ Extremity: Pulses equal, no cyanosis. Neurovascular intact. Full, normal range of motion. Neuro: Awake and alert, GCS 15, oriented to person, place, time, and situation. Motor strength 5/5 in all extremities. Sensory grossly intact. Normal gait. 13:45 Musculoskeletal/extremity: ROM: intact in all extremities, Pulses: are normal with no appreciated deficits, Calf tenderness, that is mild, of the right lower extremity, Sensation intact. NVI, dorsalis pedis pulses normal, full range of motion, mild calf tenderness/aching with palpation and ambulation. No signs of trauma.. Vital Signs: 13:39 BP 143 / 96; Pulse 81; Resp 17; Temp 97.5; Pulse Ox 100% ; Weight 72.57 kg; Height 5 [facility] ft. 9 in. (175.26 cm); Pain 9/10; 13:39 Body Mass Index 23.63 (72.57 kg, 175.26 cm) [facility] MDM: 13:43 Patient medically screened. [facility] 14:45 Differential diagnosis: tendonitis, Muscle spasm, DVT. Data reviewed: vital signs, [facility] nurses notes, radiologic studies, ultrasound. Data interpreted: Pulse oximetry: is 100 %. Interpretation: normal. Counseling: I had a detailed discussion with the patient and/or guardian regarding: the historical points, exam findings, and any diagnostic results supporting the discharge/admit diagnosis, to return to the emergency department if symptoms worsen or persist or if there are any questions or concerns that arise at home. 12/05 13:44 Order name: Extremity Venous Uni [facility]; Complete Time: 14:20 [facility] Administered Medications: 14:20 Drug: Ketorolac 30 mg Route: IM; Site: left deltoid; bm7 14:31 Follow up: Response: No adverse reaction bm7 14:26 Drug: Flexeril (cyclobenzaprine) 10 mg Route: PO; bm7 14:31 Follow up: Response: No adverse reaction bm7 Disposition: 12/06 08:36 Co-signature as Attending Physician, Issac Gomes DO I was immediately available on-site ms3 in the Emergency Department for consultation in the care of the patient. . Disposition Summary: 12/05/21 14:23 Discharge Ordered Location: Home [facility] Problem: new jh7 Symptoms: have improved jh7 Condition: Stable 7 Diagnosis - Muscle spasm of calf 7 Followup: [facility] - With: Iam Gamboa MD - When: 2 - 3 days - Reason: Recheck today's complaints Discharge Instructions: - Discharge Summary Sheet [facility] - Leg Cramps 7 - Muscle Cramps and Spasms [facility] Forms: - Medication Reconciliation Form 7 - Thank You Letter [facility] Prescriptions: - Naprosyn 500 mg Oral Tablet - take 1 tablet by ORAL route 2 times per day take with food; 30 tablet; Refills: jh7 0, Product Selection Permitted - Zanaflex 4 mg Oral Tablet - take 1 tablet by ORAL route every 8 hours As needed; 20 tablet; Refills: 0, jh7 Product Selection Permitted Signatures: Dispatcher [employer] Imelda Talley RN RN sonam7 Issac Gomes DO DO ms3 Kassy Marte RN RN bm7 Awilda Keating FNP COFFEE SHOP MANAGER [facility]
--- NOTE | 2021-12-05 14:23 | ER ---
Nurse's Notes [facility] Name: Hannah Durand Age: 56 yrs Sex: Female : 1965 Arrival Date: 12/05/2021 Time: 13:31 Bed 11 Private MD: Iam Gamboa E Diagnosis: Muscle spasm of calf Presentation: 12/05 13:39 Chief complaint: Patient states: Right leg pain, from thigh down to foot, achy mostly jl7 at night and prevents sleeping, x 4 months. Coronavirus screen: At this time, the client does not indicate any symptoms associated with coronavirus-19. Ebola Screen: No symptoms or risks identified at this time. Initial Sepsis Screen: Does the patient meet any 2 criteria? No. Patient's initial sepsis screen is negative. Does the patient have a suspected source of infection? No. Patient's initial sepsis screen is negative. Risk Assessment: Do you want to hurt yourself or someone else? Patient reports no desire to harm self or others. Onset of symptoms was July 2021. 13:39 Method Of Arrival: Ambulatory jl7 13:39 Acuity: JOHN 4 jl7 Triage Assessment: 13:42 General: Appears in no apparent distress. uncomfortable, Behavior is calm, cooperative, jl7 appropriate for age. Pain: Complains of pain in right leg Pain currently is 9 out of 10 on a pain scale. 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 - Social history:: Smoking status: Patient denies any tobacco usage or history of. Screenin:30 Abuse screen: Denies threats or abuse. Nutritional screening: No deficits noted. bm7 Tuberculosis screening: No symptoms or risk factors identified. Fall Risk None identified. Assessment: 13:42 Reassessment: [facility] in triage assessing pt. jl7 14:30 Reassessment: Patient and/or family updated on plan of care and expected duration. Pain bm7 level reassessed. Patient is alert, oriented x 3, equal unlabored respirations, skin warm/dry/pink. Vital Signs: 13:39 BP 143 / 96; Pulse 81; Resp 17; Temp 97.5; Pulse Ox 100% ; Weight 72.57 kg; Height 5 jl7 ft. 9 in. (175.26 cm); Pain 9/10; 13:39 Body Mass Index 23.63 (72.57 kg, 175.26 cm) jl7 ED Course: 13:31 Patient arrived in ED. am2 13:31 Mavis Lucas DO is Private Physician. am2 13:31 Iam Gamboa MD is Private Physician. am2 13:40 Awilda Keating FNP [facility] jh7 13:40 Issac Gomes DO is Attending Physician. 7 13:42 Triage completed. jl7 13:42 Arm band placed on right wrist. jl7 13:45 Kassy Marte, CYNTHIA is Primary Nurse. bm7 14:11 Extremity Venous Uni Ltd US In Process Unspecified. EDMS 14:22 Iam Gamboa MD is Referral Physician. 7 14:30 Patient has correct armband on for positive identification. bm7 14:30 No provider procedures requiring assistance completed. Patient did not have IV access bm7 during this emergency room visit. Administered Medications: 14:20 Drug: Ketorolac 30 mg Route: IM; Site: left deltoid; bm7 14:31 Follow up: Response: No adverse reaction 7 14:26 Drug: Flexeril (cyclobenzaprine) 10 mg Route: PO; bm7 14:31 Follow up: Response: No adverse reaction 7 Medication: 14:30 VIS not applicable for this client. bm7 Outcome: 14:23 Discharge ordered by . 7 14:30 Discharged to home ambulatory. bm7 14:30 Condition: good 14:30 Discharge instructions given to patient, Instructed on discharge instructions, follow up and referral plans. medication usage, Demonstrated understanding of instructions, follow-up care, medications, Prescriptions given X 2. 14:31 Patient left the ED. bm7 Signatures: Dispatcher [employer] EDMS Imelda Clarke RN RN jl7 Claudette Vo am2 Kassy Marte, RN RN bm7 Awilda Keating FNP [place] [id number]
[2021-12-05] MEDS ORDERED: CYCLOBENZAPRINE 10 MG TAB ONE (14:24)
[2021-12-07 21:19] VITALS: BP 143/96; TEMP 97.5; O2SAT 100
== END 2021-12-05 14:31 | disposition home or self-care (01) ==
LOC: ER 13:29
DX: M62.831 Muscle spasm of calf (principal)
CPT/HCPCS: 93971; 96372; 99283

== ENCOUNTER → 2023-03-06 | Emergency (ER) | payer BC ==
[2023-03-06 17:52] LABS: SARS-CoV-2 Antigen Rapid Res Negative (Negative)
--- NOTE | 2023-03-06 18:06 | EDPHYS ---
Physician Documentation [facility] Name: Hannah Durand Age: 57 yrs Sex: Female : 1965 Arrival Date: 03/06/2023 Time: 17:03 Bed IW1 Private MD: ED Physician Nikhil Cates HPI: 03/06 18:54 This 57 yrs old Black Female presents to ER via Ambulatory with complaints of Body kb aches. 18:54 Patient is a 57-year-old female with a history of hypertension who presents for cough, kb congestion, body aches and chills that started last night. Denies fever.. Historical: - Allergies: 17:11 NKDA; ll1 - PMHx: 17:11 Hypertension; ll1 - PSHx: 17:11 None; ll1 - Immunization history:: Adult Immunizations up to date. - Social history:: Smoking status: Patient denies any tobacco usage or history of. ROS: 18:54 Abdomen/GI: Negative for abdominal pain, nausea, vomiting, diarrhea, and constipation, kb 18:54 Constitutional: Positive for body aches, chills, malaise, 18:54 ENT: Positive for rhinorrhea, sinus congestion, 18:54 Respiratory: Positive for cough, 18:54 All other systems are negative, Exam: 18:54 Constitutional: This is a well developed, well nourished patient who is awake, alert, kb and in no acute distress. Head/Face: Normocephalic, atraumatic. ENT: Moist Mucous membranes Cardiovascular: Regular rate Respiratory: Respirations even and unlabored. No increased work of breathing. Talking in full sentences Abdomen/GI: Soft, non-tender. No distention Skin: Warm, dry with normal turgor. Normal color. MS/ Extremity: Pulses equal, no cyanosis. Neurovascular intact. Full, normal range of motion. Neuro: Awake and alert, GCS 15, oriented to person, place, time, and situation. Moves all extremities. Normal gait. Vital Signs: 17:10 BP 158 / 97; Pulse 89; Resp 18; Temp 98.8; Pulse Ox 100% ; Weight 79.38 kg; Height 6 ll1 ft. 1 in. ; Pain 10/10; 17:10 Body Mass Index 23.09 (79.38 kg, 185.42 cm) ll1 17:10 Pain Scale: Adult ll1 MDM: 17:07 Patient medically screened. kb 18:54 Differential diagnosis: flu, covid, uri. Data reviewed: vital signs, nurses notes. 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 03/06 17:15 Order name: Flu; Complete Time: 18:05 iw 03/06 17:15 Order name: SARS RAPID; Complete Time: 18:05 iw Administered Medications: No medications were administered Disposition Summary: 03/06/23 18:05 Discharge Ordered Notes: Location: Home kb Condition: Stable kb Diagnosis - Influenza due to identified novel influenza A virus kb Followup: kb - With: Emergency Department - When: As needed - Reason: Worsening of condition Followup: kb - With: Private Physician - When: 2 - 3 days - Reason: Recheck today's complaints, Continuance of care, Re-evaluation by your physician Discharge Instructions: - Discharge Summary Sheet kb - Influenza, Adult, [id number] kb Forms: - Medication Reconciliation Form kb - Thank You Letter kb - Antibiotic Education kb - Prescription Opioid Use kb - Patient Portal Instructions kb - Leadership Thank You Letter kb - Work release form ha1 Prescriptions: - Tamiflu 75 mg Oral capsule - take 1 tablet ORAL route every 12 hours for 5 days; 10 tablet; Refills: 0, kb Product Selection Permitted Addendum: 03/08/2023 09:22 I was immediately available for consultation during this patient's visit. I did not e c2 personally see the patient or guide the patient's care. . Signatures: Dispatcher [employer] Mee Valladares FNP-C FNP-Melvin Zamorano RN RN ll1 Nikhil Cates MD MD ec2 Corrections: (The following items were deleted from the chart) 03/06 18:54 18:54 Constitutional: This is a well developed, well nourished patient who is awake, kb alert, and in no acute distress. Head/Face: Normocephalic, atraumatic. ENT: Moist Mucous membranes Cardiovascular: Regular rate Respiratory: Respirations even and unlabored. No increased work of breathing. Talking in full sentences Skin: Warm, dry with normal turgor. Normal color. MS/ Extremity: Pulses equal, no cyanosis. Neurovascular intact. Full, normal range of motion. Neuro: Awake and alert, GCS 15, oriented to person, place, time, and situation. Moves all extremities. Normal gait. kb
--- NOTE | 2023-03-06 18:06 | ER ---
Nurse's Notes [facility] Name: Hannah Durand Age: 57 yrs Sex: Female : 1965 Arrival Date: 03/06/2023 Time: 17:03 Bed IW1 Private MD: Diagnosis: Influenza due to identified novel influenza A virus Presentation: 03/06 17:10 Chief complaint: Patient states: Cough, congestion, body aches since last night. ll1 Coronavirus screen: Client denies travel out of the [place] in the last 14 days. congestion, cough unrelated to allergies, fatigue, headache, nausea, Client presents with at least one sign or symptom that may indicate coronavirus-19. Standard/surgical mask placed on the client. Ebola Screen: Patient denies travel to an Ebola-affected area in the 21 days before illness onset. Initial Sepsis Screen: Does the patient meet any 2 criteria? No. Patient's initial sepsis screen is negative. Does the patient have a suspected source of infection? Yes: Productive cough/pneumonia. Risk Assessment: Do you want to hurt yourself or someone else? Patient reports no desire to harm self or others. Onset of symptoms was March 05, 2023. 17:10 Method Of Arrival: Ambulatory ll1 17:10 Acuity: JOHN 4 ll1 Triage Assessment: 17:12 General: Appears uncomfortable, ill, Behavior is calm, cooperative, appropriate for ll1 age. Pain: Complains of pain in head Quality of pain is described as aching. EENT: Reports nasal congestion. Neuro: Reports dizziness, headache. Respiratory: Reports cough that is. GI: Reports nausea. Historical: - Allergies: 17:11 NKDA; ll1 - PMHx: 17:11 Hypertension; ll1 - PSHx: 17:11 None; ll1 - Immunization history:: Adult Immunizations up to date. - Social history:: Smoking status: Patient denies any tobacco usage or history of. Assessment: 19:13 Reassessment: No changes from previously documented assessment. Patient and/or family ll1 updated on plan of care and expected duration. Pain level reassessed. Vital Signs: 17:10 BP 158 / 97; Pulse 89; Resp 18; Temp 98.8; Pulse Ox 100% ; Weight 79.38 kg; Height 6 ll1 ft. 1 in. ; Pain 10/10; 17:10 Body Mass Index 23.09 (79.38 kg, 185.42 cm) ll1 17:10 Pain Scale: Adult ll1 ED Course: 17:05 Patient arrived in ED. mr 17:07 Mee aRe FNP-C is [facility]. kb 17:07 Nikhil Cates MD is Attending Physician. kb 17:11 Triage completed. ll1 17:11 Arm band placed on. ll1 17:17 Flu Sent. ll1 17:17 SARS RAPID Sent. ll1 17:28 SARS RAPID Sent. ll1 17:28 Flu Sent. ll1 Administered Medications: No medications were administered Outcome: 18:05 Discharge ordered by MD. kb 19:13 Discharged to home ambulatory, ll1 19:13 Condition: stable 19:13 Discharge instructions given to patient, Instructed on discharge instructions, follow up and referral plans. medication usage, Demonstrated understanding of instructions, follow-up care, medications, Prescriptions given X 1, 19:13 Patient left the ED. ll1 Signatures: Mee Rae FNP-C SUPERVISOR COFFEE-Daphnie Peterson, Reg Reg Melvin Durbin, RN RN ll1 Corrections: (The following items were deleted from the chart) 17:13 17:10 Resp 18bpm; 79.38 kg; Height 6 ft. 1 in.; BMI: 23.0; Pain 10/10, Adult; ll1 ll1
[2023-03-06 22:41] VITALS: BP 158/97; TEMP 98.8; O2SAT 100
== END ==
LOC: ER 17:03
DX: J10.1 Influenza due to other identified influenza virus with other respiratory manifestations (principal); Z11.52 Encounter for screening for COVID-19
CPT/HCPCS: 36415; 87804; 87811; 99283